=== PATIENT | female | born 1980 | race Caucasian/White ===

== ENCOUNTER 2016-02-29 12:40 | Outpatient (CLI) | payer BC ==
[~2016-02-29] VITALS: Ht 177.8 cm; Wt 108.9 kg
[~2016-02-29 12:40] MED LIST: CEPH-507 PO; CRYSELLE MT; HYDR1TAB PO; ZOVIA
[2016-02-29 12:52] VITALS: BP 125/82
[2016-02-29 13:25] VITALS: BP 113/71
[2016-02-29 13:55] VITALS: BP 113/74
[2016-02-29] MEDS ORDERED: PREN1TAB86 PO (14:11)
[2016-02-29 14:35] VITALS: BP 113/74
--- NOTE | 2016-03-02 08:35 | Physician Query-Final Dx ---
AUSTIN LEBLANC 03/02/16 0835: Clinic Account Progress/Dx Physician Query: Please give diagnosis Date of Service Feb 29, 2016 at 12:40 GILLIAN BROWN DO 03/03/16 1609: Clinic Account Progress/Dx DIAGNOSIS: Diagnosis Fall in , third trimester AUSTIN LEBLANC Mar 02, 2016 08:35 GILLIAN BROWN DO Mar 03, 2016 16:09
[2016-03-06] MEDS ORDERED: IBUP-1773 PO (07:18)
[2016-03-06] MEDS ORDERED: SIME80TA16 PO (07:18)
[2016-03-06] MEDS ORDERED: FERR-74 PO (07:18)
[2016-03-06] MEDS ORDERED: DOCU100C37 PO (07:18)
[2016-03-06] MEDS ORDERED: HYDR-3812 PO (07:18)
== END 2016-02-29 14:35 | disposition home or self-care (01) ==
LOC: WSo 12:40 → LDRP 12:40 → WSo 14:35
PROVIDERS: ATTEND Obstetrics & Gynecology
DX: O9A.213 Injury, poisoning and certain other consequences of external causes complicating pregnancy, third trimester (principal); W19.XXXA Unspecified fall, initial encounter; Y99.8 Other external cause status; Z3A.38 38 weeks gestation of pregnancy
CPT/HCPCS: 99214

== ENCOUNTER 2016-03-04 07:00 | Inpatient (IN) | payer BC ==
[~2016-03-04] VITALS: Ht 175.3 cm; Wt 109.8 kg
[2016-03-04] VITALS (15 sets, daily range): BP systolic 94–191; BP diastolic 51–132
[~2016-03-04 07:00] MED LIST changes: +PREN1TAB86 PO
[2016-03-04] MEDS ORDERED: D5 LR IV SOLUTION 1,000 ML IV SCH (07:20)
[2016-03-04] MEDS ORDERED: AMPICILLIN INJECTION 2,000 MG in NORMAL SALINE (BAXTER MINI) 50 ML IV SCH (07:20)
[2016-03-04] MEDS ORDERED: MINERAL OIL CONCENTRATE 99.9% 15 ML UDC TOP PRN (07:30)
[2016-03-04] MEDS ORDERED: LIDOCAINE/EPI 1%-1:200,000 (XYLOCAINE) 30 ML VIAL INJ PRN (07:30)
[2016-03-04] MEDS ORDERED: OXYTOCIN/NORMAL SALINE 500 ML IV SCH ×2 (08:38→13:48)
[2016-03-04 08:56] LABS: BASOPHILS % (AUTO) 0 % (0-10); EOSINOPHILS % (AUTO) 1 % (0-10); LYMPHOCYTES # (AUTO) 0.9 X 10^3 (1.0-4.0); LYMPHOCYTES % (AUTO) 18 % (12-44); MEAN CORPUSCULAR HEMOGLOBIN 32 PG (25-34); MEAN CORPUSCULAR HGB CONC 35 G/DL (32-36); MEAN CORPUSCULAR VOLUME 93 FL (80-99); MEAN PLATELET VOLUME 10.5 FL (7.4-10.4); MONOCYTES # (AUTO) 0.5 X 10^3 (0.0-1.0); MONOCYTES % (AUTO) 10 % (0-12); NEUTROPHILS # (AUTO) 3.6 X 10^3 (1.8-7.8); NEUTROPHILS % (AUTO) 72 % (42-75); PLATELET COUNT 157 10^3/uL (130-400); RED BLOOD COUNT 3.46 10^6/uL (4.35-5.85); RED CELL DISTRIBUTION WIDTH 13.4 % (10.0-14.5)
[2016-03-04 09:03] LABS: BILIRUBIN,URINE NEGATIVE (NEGATIVE); KETONES,URINE NEGATIVE (NEGATIVE); LEUKOCYTE ESTERASE ,URINE 2+ (NEGATIVE); NITRITE,URINE NEGATIVE (NEGATIVE); PH,URINE 6.5 (5-9); PROTEIN,URINE NEGATIVE (NEGATIVE); UROBILINOGEN,URINE NORMAL (NORMAL)
[2016-03-04] MEDS ORDERED: AMPICILLIN INJECTION 1,000 MG in NORMAL SALINE (BAXTER MINI) 50 ML IV SCH (11:30)
[2016-03-04] MEDS ORDERED: TERBUTALINE INJ 1 MG/ML (BRETHINE) AMP ONE (12:37)
[2016-03-04] MEDS ORDERED: METOCLOPRAMIDE INJ 10 MG/2 ML (REGLAN) ONE (12:46)
[2016-03-04] MEDS ORDERED: SUCCINYLCHOLINE INJ 100 MG/5 ML SYR ONE (12:47)
[2016-03-04] MEDS ORDERED: proPOfol 200 MG/20 ML (DIPRIVAN) VIAL IV ONE ×2 (12:47→13:18)
[2016-03-04] MEDS ORDERED: fentaNYL INJECTION 100 MCG/2 ML AMP ONE ×2 (12:47→13:11)
[2016-03-04] MEDS ORDERED: CARBOPROST (HEMABATE) 250 MCG/ML AMP IM ONE (13:01)
[2016-03-04] MEDS ORDERED: ceFAZolin 1,000 MG (ANCEF) VIAL ONE (13:18)
[2016-03-04] MEDS ORDERED: OXYTOCIN/NORMAL SALINE 1,000 ML IV ONE (13:31)
[2016-03-04] MEDS ORDERED: morphine INJ 10 MG/ML 1ML (SYR OR VIAL) ONE (13:45)
[2016-03-04] MEDS ORDERED: ceFAZolin 1,000 MG (ANCEF) VIAL IVP SCH (13:45)
--- NOTE | 2016-03-04 13:52 | Cesarean Section Operative ---
Procedure Procedure Note Pre-operative Diagnosis: Yoselin Ashton is a 36 /Para 5 /3 , Gestational Age 39 weeks with bradycardia, vaginal bleeding, induced at 35 weeks due to gestational hypertension and advanced maternal age Post-operative Diagnosis: placental abruption Procedure: Primary emergent low transverse section Physician: GILLIAN BROWN Blower Mechanic: Delia Sagastume MD Estimated blood loss: 1400 mL Disposition: stable Findings: Viable male infant, Apgars 8/9, weight 8#10 oz, intact placenta, 3vc, normal appearing uterus, tubes, and ovaries. large partial abruption, >1000 ml in the uterus Indications:Yoselin Ashton is a 36 /Para 5 /3 ,Gestational Age 39 weeks with bradycardia, vaginal bleeding. Induced at 35 weeks due to gestational hypertension and advanced maternal age. Procedure Details: The patient was seen in pre-op and the procedure was discussed with the patient in full, including the risks, benefits, and alternatives. All questions were answered. The patient was taken to the operating room and a time out was performed, verifying patient and procedure. Please see preoperative note. General anesthesia was found to be adequate and the patient was placed in the dorsal supine with leftward tilt for uterine displacement.~ Her abdomen was then subsequently and draped in the typical sterile fashion. A Pfannenstiel skin incision was made using a scalpel and carried down through the underlying fascia. The fascia was incised in the midline and tented up using Nyla clamps. The peritoneum was identified and entered bluntly in the midline. This was then stretched laterally using manual strength. A\ large Aman retractor was placed and the lower uterine segment was visualized. A scalpel was utilized to make a low transverse uterine incision. Amniotomy was performed with an Allis clamp with return of bloody fluid. The 's head was grasped and brought to the level of the incision. Fundal pressure was applied and infant was delivered without difficulty. Mouth and nares were suctioned with bulb suction. After the umbilical cord was clamped and cut, the was handed off to the pediatric staff. A sample of cord blood was then obtained. Cord gases were sent. The placenta was delivered at the same time as the baby and there was evidence of a very large abruption. The uterus was cleared of all clots and debris. The uterine incision was closed using 0 Vicryl in a running locked fashion. A second imbricated layer was placed using 0 Vicryl in a running fashion as well. The gutters were cleared of all clots and debris. Again the hysterotomy site was examined and hemostasis was observed. The bilateral tubes and ovaries appeared normal. A final check of the uterine incision showed it to be hemostatic. The peritoneum was closed using 3-0 Vicryl in a running fashion. The fascia was closed with 0 Vicryl in a running fashion. The subcutaneous space was hemostatic, and irrigated. The subcutaneous space was closed with 3-0 Vicryl in several single interrupted stitches. The skin was then closed using 4- 0 Monocryl in a running subcuticular fashion. The skin edges were reapproximated together and were hemostatic. A pressure dressing was applied. All sponge, lap and needle counts were correct at the end of the procedure per nursing. 1257 to room 1301 incision 1303 delivery Vitals - Labs Vital Signs - I&O Vital Signs Date Time Temp Pulse Resp B/P Pulse Ox O2 Delivery O2 Flow Rate FiO2 03/04/16 11:15 86 18 114/65 Room Air 03/04/16 11:00 86 18 114/65 Room Air 03/04/16 10:45 90 18 114/65 Room Air 03/04/16 10:05 85 18 131/79 03/04/16 07:45 97.1 95 18 138/89 Room Air Labs Laboratory Tests 03/04/16 08:30: Urine Bacteria MODERATEH, Urine Bilirubin NEGATIVE, Urine Casts NONE, Urine Clarity SLIGHTLY CLOUDY, Urine Color YELLOW, Urine Crystals NONE, Urine Culture Indicated NO, Urine Glucose (UA) NEGATIVE, Urine Ketones NEGATIVE, Urine Leukocyte Esterase 2+H, Urine Mucus NEGATIVE, Urine Nitrite NEGATIVE, Urine Protein NEGATIVE, Urine RBC NONE, Urine RBC (Auto) NEGATIVE, Urine Specific [place] 1.015L, Urine Squamous Epithelial Cells 10-25H, Urine Urobilinogen NORMAL, Urine WBC 2-5, Urine pH 6.5 03/04/16 08:31: Basophils # (Auto) 0.0, Basophils (%) (Auto) 0, Eosinophils # (Auto) 0.0, Eosinophils (%) (Auto) 1, Hematocrit 32L, Hemoglobin 11.2L, Lymphocytes # (Auto ) 0.9L, Lymphocytes (%) (Auto) 18, Mean Corpuscular Hemoglobin 32, Mean Corpuscular Hemoglobin Concent 35, Mean Corpuscular Volume 93, Mean Platelet Volume 10.5H, Monocytes # (Auto) 0.5, Monocytes (%) (Auto) 10, Neutrophils # ( Auto) 3.6, Neutrophils (%) (Auto) 72, Platelet Count 157, Red Blood Count 3.46L , Red Cell Distribution Width 13.4, White Blood Count 5.0 GILLIAN BROWN DO Mar 04, 2016 13:52
[2016-03-04] MEDS ORDERED: HYDROmorphone (DILAUDID) 2 MG/ML VIAL ONE (13:55)
[2016-03-04] MEDS ORDERED: ONDANSETRON 4 MG/2 ML (SDV) Z0FRAN ONE (13:55)
--- NOTE | 2016-03-04 13:56 | Progress Note-Standard ---
Standard Progress Note Progress Notes/Assess & Plan Progress/Assessment & Plan late entry AROM of clear, copious fluid at 1230 am... FSE placed. 6/50/-1-2 a few minutes later, had a deceleration that resolved. Position change, Pitocin off. About 20 minutes later, had bradycardia to 40-50 for several minutes. I was en route back to labor and delivery. RN also noted bloody show, moderate amount, She had not had any bleeding previous. RN checked and no prolapse, no subtle prolapse. Dr. Sagastume arrived on the floor and determined abruption. Patient stated, I just feel different. No tetanic contractions noted. Patient was taken to the OR for stat section with general anesthesia. hearttones were 100s prior to moving her to the back. She was consented fro stat section. Risks of bleeding, infection, injury to bowel, bladder and ureter explained to patient and . GILLIAN BROWN DO Mar 04, 2016 13:56
[2016-03-04] MEDS ORDERED: LACTATED RINGERS 1,000 ML IV ONE (13:57)
[2016-03-04] MEDS ORDERED: MEASLES,MUMPS,RUBELLA 1 EA INJ SC SCH (14:00)
[2016-03-04] MEDS ORDERED: TETANUS,DIPTH,PERTUSS P/F (BOOSTRIX) 0.5 ML VIAL IM SCH (14:00)
[2016-03-04] MEDS ORDERED: CATHETER FLUSH 10 ML SYR IV SCH ×2 (14:00)
[2016-03-04] MEDS ORDERED: ONDANSETRON 4 MG/2 ML (SDV) Z0FRAN IVP PRN ×2 (14:00→14:15)
[2016-03-04] MEDS ORDERED: ceFAZolin INJECTION 1,000 MG in NORMAL SALINE (BAXTER MINI) 50 ML IV SCH (14:00)
[2016-03-04] MEDS: HYDROmorphone (DILAUDID) 2 MG/ML VIAL IVP PRN ×7 (14:03→21:02)
[2016-03-04] MEDS ORDERED: KETOROLAC 30 MG/ML VIAL ONE (14:08)
[2016-03-04] MEDS ORDERED: MEPERIDINE (DEMEROL) INJ 50 MG/ML IVP PRN (14:15)
[2016-03-04] MEDS: KETOROLAC 30 MG/ML VIAL IVP SCH ×2 (14:17→19:45)
[2016-03-04 14:21] LABS: BASOPHILS % (AUTO) 0 % (0-10); EOSINOPHILS % (AUTO) 0 % (0-10); LYMPHOCYTES # (AUTO) 0.8 X 10^3 (1.0-4.0); LYMPHOCYTES % (AUTO) 12 % (12-44); MEAN CORPUSCULAR HEMOGLOBIN 33 PG (25-34); MEAN CORPUSCULAR HGB CONC 35 G/DL (32-36); MEAN CORPUSCULAR VOLUME 94 FL (80-99); MEAN PLATELET VOLUME 9.8 FL (7.4-10.4); MONOCYTES # (AUTO) 0.3 X 10^3 (0.0-1.0); MONOCYTES % (AUTO) 4 % (0-12); NEUTROPHILS # (AUTO) 5.9 X 10^3 (1.8-7.8); NEUTROPHILS % (AUTO) 84 % (42-75); PLATELET COUNT 150 10^3/uL (130-400); RED BLOOD COUNT 3.41 10^6/uL (4.35-5.85); RED CELL DISTRIBUTION WIDTH 13.6 % (10.0-14.5)
[2016-03-04 14:32] LABS: INR 1.1 (0.8-1.4); PROTHROMBIN TIME PATIENT 13.9 SEC (12.2-14.7)
[2016-03-04] MEDS ORDERED: TERBUTALINE INJ 1 MG/ML (BRETHINE) AMP SC ONE (15:15)
[2016-03-04 18:27] LABS: INR 1.1 (0.8-1.4); PROTHROMBIN TIME PATIENT 14.3 SEC (12.2-14.7)
[2016-03-04] MEDS: HYDROcodone/APAP 5 MG/325 MG (LORTAB) TAB PO PRN ×2 (19:45→23:55)
[2016-03-04] MEDS: ceFAZolin INJECTION 1,000 MG in NORMAL SALINE (BAXTER MINI) 50 ML IV SCH (20:02)
[2016-03-04] MEDS: DOCUSATE SODIUM 100 MG (COLACE) CAP PO SCH (23:55)
[2016-03-05] MEDS: KETOROLAC 30 MG/ML VIAL IVP SCH ×2 (02:43→08:54)
[2016-03-05 04:55] VITALS: BP 113/63
[2016-03-05] MEDS: HYDROcodone/APAP 5 MG/325 MG (LORTAB) TAB PO PRN ×3 (04:55→23:55)
[2016-03-05] MEDS: ceFAZolin INJECTION 1,000 MG in NORMAL SALINE (BAXTER MINI) 50 ML IV SCH (05:14)
[2016-03-05] MEDS: LACTATED RINGERS 1,000 ML IV SCH ×3 (06:01→15:59)
[2016-03-05 06:30] LABS: BASOPHILS % (AUTO) 0 % (0-10); EOSINOPHILS % (AUTO) 0 % (0-10); LYMPHOCYTES # (AUTO) 0.7 X 10^3 (1.0-4.0); LYMPHOCYTES % (AUTO) 11 % (12-44); MEAN CORPUSCULAR HEMOGLOBIN 32 PG (25-34); MEAN CORPUSCULAR HGB CONC 33 G/DL (32-36); MEAN CORPUSCULAR VOLUME 96 FL (80-99); MONOCYTES # (AUTO) 0.4 X 10^3 (0.0-1.0); MONOCYTES % (AUTO) 7 % (0-12); NEUTROPHILS # (AUTO) 4.8 X 10^3 (1.8-7.8); NEUTROPHILS % (AUTO) 82 % (42-75); PLATELET COUNT 132 10^3/uL (130-400); RED BLOOD COUNT 2.32 10^6/uL (4.35-5.85); RED CELL DISTRIBUTION WIDTH 13.6 % (10.0-14.5); WHITE BLOOD COUNT 5.9 10^3/uL (4.3-11.0)
--- NOTE | 2016-03-05 08:13 | Postpartum Progress Note ---
Post Op Post-operative Day #1 PLTCS - abruption Subjective: Patient is without complaints. Ambulating, voiding after lopez removed. Tolerating a regular diet without nausea or vomiting. Normal lochia. Pain is well controlled with oral pain medications. not flatus. breast feeding. Objective: Vital Sign - Last 24 Hours 03/04/16 03/04/16 03/04/16 03/04/16 10:05 10:45 11:00 11:15 Pulse 85 90 86 86 Resp 18 B/P 131/79 114/65 114/65 114/65 O2 Delivery Room Air Room Air Room Air 03/04/16 03/04/16 03/04/16 03/04/16 11:30 11:40 12:15 12:30 Temp 97.2 Pulse 80 82 82 73 Resp B/P 110/58 101/57 134/79 94/51 O2 Delivery Room Air Room Air Room Air Room Air 03/04/16 03/04/16 03/04/16 03/04/16 12:35 12:40 12:52 15:10 Temp 97.3 Pulse 97 91 Resp 16 B/P 191/132 98/53 104/69 Pulse Ox 100 O2 Delivery Non Rebreather Room Air Room Air Room Air O2 Flow Rate 10.00 03/04/16 03/04/16 03/04/16 03/04/16 15:20 16:40 20:00 23:55 Temp 97.8 97.6 99.1 Pulse 89 93 81 Resp 16 16 16 B/P 104/65 115/76 106/71 Pulse Ox 98 100 97 O2 Delivery Room Air Room Air Room Air Room Air 03/05/16 04:55 Temp 98.1 Pulse 86 Resp 16 B/P 113/63 Pulse Ox 99 O2 Delivery Room Air Intake and Output 03/04/16 03/04/16 03/05/16 15:00 23:00 07:00 Intake Total 175 ml 1000 ml Output Total 40 ml 220 ml 850 ml Balance -40 ml -45 ml 150 ml Laboratory Tests Test 03/04/16 08:30 03/04/16 08:31 03/04/16 14:12 03/04/16 18:24 Range/Units Urine Bacteria MODERATE H /HPF Urine Bilirubin NEGATIVE NEGATIVE Urine Casts NONE /LPF Urine Clarity SLIGHTLY CLOUDY Urine Color YELLOW Urine Crystals NONE /LPF Urine Culture Indicated NO Urine Glucose (UA) NEGATIVE NEGATIVE Urine Ketones NEGATIVE NEGATIVE Urine Leukocyte Esterase 2+ H NEGATIVE Urine Mucus NEGATIVE /LPF Urine Nitrite NEGATIVE NEGATIVE Urine Protein NEGATIVE NEGATIVE Urine RBC NONE /HPF Urine RBC (Auto) NEGATIVE NEGATIVE Urine Specific [place] 1.015 L 1.016-1.022 Urine Squamous Epithelial Cells 10-25 H /HPF Urine Urobilinogen NORMAL NORMAL MG/DL Urine WBC 2-5 /HPF Urine pH 6.5 5-9 Basophils # (Auto) 0.0 0.0 0.0-0.1 10^3/uL Basophils (%) (Auto) 0 0 0-10 % Eosinophils # (Auto) 0.0 0.0 0.0-0.3 10^3/uL Eosinophils (%) (Auto) 1 0 0-10 % Hematocrit 32 L 32 L 35-52 % Hemoglobin 11.2 L 11.1 L 11.5-16.0 G/DL Lymphocytes # (Auto) 0.9 L 0.8 L 1.0-4.0 X 10^3 Lymphocytes (%) (Auto) 18 12 12-44 % Mean Corpuscular Hemoglobin 32 33 25-34 PG Mean Corpuscular Hemoglobin Concent 35 35 32-36 G/DL Mean Corpuscular Volume 93 94 80-99 FL Mean Platelet Volume 10.5 H 9.8 7.4-10.4 FL Monocytes # (Auto) 0.5 0.3 0.0-1.0 X 10^3 Monocytes (%) (Auto) 10 4 0-12 % Neutrophils # (Auto) 3.6 5.9 1.8-7.8 X 10^3 Neutrophils (%) (Auto) 72 84 H 42-75 % Platelet Count 157 150 130-400 10^3/uL Red Blood Count 3.46 L 3.41 L 4.35-5.85 10^6/uL Red Cell Distribution Width 13.4 13.6 10.0-14.5 % White Blood Count 5.0 7.0 4.3-11.0 10^3/uL Activated Partial Thromboplast Time 23 L 24 24-35 SEC D-Dimer 7.85 H 5.50 H 0.00-0.49 UG/ML Fibrinogen 382 327 221-496 MG/DL INR Comment 1.1 1.1 0.8-1.4 Prothrombin Time 13.9 14.3 12.2-14.7 SEC Test 03/05/16 06:11 Range/Units Basophils # (Auto) 0.0 0.0-0.1 10^3/uL Basophils (%) (Auto) 0 0-10 % Eosinophils # (Auto) 0.0 0.0-0.3 10^3/uL Eosinophils (%) (Auto) 0 0-10 % Hematocrit 22 L 35-52 % Hemoglobin 7.4 #L 11.5-16.0 G/DL Lymphocytes # (Auto) 0.7 L 1.0-4.0 X 10^3 Lymphocytes (%) (Auto) 11 L 12-44 % Mean Corpuscular Hemoglobin 32 25-34 PG Mean Corpuscular Hemoglobin Concent 33 32-36 G/DL Mean Corpuscular Volume 96 80-99 FL Mean Platelet Volume 10.0 7.4-10.4 FL Monocytes # (Auto) 0.4 0.0-1.0 X 10^3 Monocytes (%) (Auto) 7 0-12 % Neutrophils # (Auto) 4.8 1.8-7.8 X 10^3 Neutrophils (%) (Auto) 82 H 42-75 % Platelet Count 132 130-400 10^3/uL Red Blood Count 2.32 L 4.35-5.85 10^6/uL Red Cell Distribution Width 13.6 10.0-14.5 % White Blood Count 5.9 4.3-11.0 10^3/uL Physical Exam: General - Alert and oriented, no apparent distress Abdomen - Soft, appropriately tender to palpation, non-distended, fundus firm at umbilicus Incision - clean, dry and intact; no erythema or induration, no drainage Extremities - no edema, negative Olivia's bilaterally Assessment: 1. post-operative day # 1, status post PLTCS, abruption Recovering well, hemodynamically stable 2. Acute blood loss anemia - stable Plan: Routine post-operative care. Encourage breast feeding. Encourage ambulation. VTE prophylaxis: SCDs. Ferrous sulfate supplementation. Vitals - Labs Vital Signs - I&O Vital Signs Date Time Temp Pulse Resp B/P Pulse Ox O2 Delivery O2 Flow Rate FiO2 03/05/16 04:55 98.1 86 16 113/63 99 Room Air 03/04/16 23:55 99.1 81 16 106/71 97 Room Air 03/04/16 20:00 97.6 93 16 115/76 100 Room Air 03/04/16 16:40 Room Air 03/04/16 15:20 97.8 89 16 104/65 98 Room Air 03/04/16 15:10 97.3 91 16 104/69 100 Room Air 03/04/16 12:52 97 18 98/53 Room Air 03/04/16 12:40 18 191/132 Room Air 03/04/16 12:35 Non Rebreather 10.00 03/04/16 12:30 73 18 94/51 Room Air 03/04/16 12:15 82 18 134/79 Room Air 03/04/16 11:40 82 18 101/57 Room Air 03/04/16 11:30 97.2 80 18 110/58 Room Air 03/04/16 11:15 86 18 114/65 Room Air 03/04/16 11:00 86 18 114/65 Room Air 03/04/16 10:45 90 18 114/65 Room Air 03/04/16 10:05 85 18 131/79 I & O 03/05/16 07:00 Intake Total 1175 ml Output Total 1110 ml Balance 65 ml Labs Laboratory Tests 03/04/16 08:30: Urine Bacteria MODERATEH, Urine Bilirubin NEGATIVE, Urine Casts NONE, Urine Clarity SLIGHTLY CLOUDY, Urine Color YELLOW, Urine Crystals NONE, Urine Culture Indicated NO, Urine Glucose (UA) NEGATIVE, Urine Ketones NEGATIVE, Urine Leukocyte Esterase 2+H, Urine Mucus NEGATIVE, Urine Nitrite NEGATIVE, Urine Protein NEGATIVE, Urine RBC NONE, Urine RBC (Auto) NEGATIVE, Urine Specific [place] 1.015L, Urine Squamous Epithelial Cells 10-25H, Urine Urobilinogen NORMAL, Urine WBC 2-5, Urine pH 6.5 03/04/16 08:31: Basophils # (Auto) 0.0, Basophils (%) (Auto) 0, Eosinophils # (Auto) 0.0, Eosinophils (%) (Auto) 1, Hematocrit 32L, Hemoglobin 11.2L, Lymphocytes # (Auto ) 0.9L, Lymphocytes (%) (Auto) 18, Mean Corpuscular Hemoglobin 32, Mean Corpuscular Hemoglobin Concent 35, Mean Corpuscular Volume 93, Mean Platelet Volume 10.5H, Monocytes # (Auto) 0.5, Monocytes (%) (Auto) 10, Neutrophils # ( Auto) 3.6, Neutrophils (%) (Auto) 72, Platelet Count 157, Red Blood Count 3.46L , Red Cell Distribution Width 13.4, White Blood Count 5.0 03/04/16 14:12: Basophils # (Auto) 0.0, Basophils (%) (Auto) 0, Eosinophils # (Auto) 0.0, Eosinophils (%) (Auto) 0, Hematocrit 32L, Hemoglobin 11.1L, Lymphocytes # (Auto ) 0.8L, Lymphocytes (%) (Auto) 12, Mean Corpuscular Hemoglobin 33, Mean Corpuscular Hemoglobin Concent 35, Mean Corpuscular Volume 94, Mean Platelet Volume 9.8, Monocytes # (Auto) 0.3, Monocytes (%) (Auto) 4, Neutrophils # (Auto ) 5.9, Neutrophils (%) (Auto) 84H, Platelet Count 150, Red Blood Count 3.41L, Red Cell Distribution Width 13.6, White Blood Count 7.0, Activated Partial Thromboplast Time 23L, D-Dimer 7.85H, Fibrinogen 382, INR Comment 1.1, Prothrombin Time 13.9 03/04/16 18:24: Activated Partial Thromboplast Time 24, D-Dimer 5.50H, Fibrinogen 327, INR Comment 1.1, Prothrombin Time 14.3 03/05/16 06:11: Basophils # (Auto) 0.0, Basophils (%) (Auto) 0, Eosinophils # (Auto) 0.0, Eosinophils (%) (Auto) 0, Hematocrit 22L, Hemoglobin 7.4#L, Lymphocytes # (Auto ) 0.7L, Lymphocytes (%) (Auto) 11L, Mean Corpuscular Hemoglobin 32, Mean Corpuscular Hemoglobin Concent 33, Mean Corpuscular Volume 96, Mean Platelet Volume 10.0, Monocytes # (Auto) 0.4, Monocytes (%) (Auto) 7, Neutrophils # (Auto ) 4.8, Neutrophils (%) (Auto) 82H, Platelet Count 132, Red Blood Count 2.32L, Red Cell Distribution Width 13.6, White Blood Count 5.9 GILLIAN BROWN DO Mar 05, 2016 08:13
[2016-03-05] MEDS: DOCUSATE SODIUM 100 MG (COLACE) CAP PO SCH ×2 (08:55→20:30)
[2016-03-05] MEDS: FERROUS SULF 325 MG (IRON) TAB PO SCH ×2 (08:57→20:30)
[2016-03-05] MEDS: MILK OF MAGNESIA 400 MG/5 ML 30 ML UDC PO SCH ×3 (08:57→20:30)
[2016-03-05 08:59] VITALS: BP 111/66
[2016-03-05 14:13] VITALS: BP 108/70
[2016-03-05] MEDS: IBUPROFEN 600 MG (MOTRIN) TAB PO SCH ×2 (14:14→20:30)
--- NOTE | 2016-03-05 14:24 | Anesthesia-General Post-Op ---
General Patient Condition Mental Status/LOC: Same as Preop Cardiovascular: Satisfactory Nausea/Vomiting: Absent Respiratory: Satisfactory Pain: Controlled Complications: Absent Post Op Complications Complications None Follow Up Care/Instructions Patient Instructions None needed. Anesthesia/Patient Condition Patient Condition Patient is doing well, no complaints, stable vital signs, no apparent adverse anesthesia problems. No complications reported per nursing. JAY ORTIZ CRNA Mar 05, 2016 14:24
[2016-03-05] MEDS ORDERED: SIMETHICONE 80 MG (MYLICON) CHEW ONE (18:32)
[2016-03-05] MEDS ORDERED: SIMETHICONE 80 MG (MYLICON) CHEW PO PRN ×2 (18:45)
[2016-03-05 20:00] VITALS: BP 110/68
[2016-03-06 01:55] VITALS: BP 102/67
[2016-03-06] MEDS: IBUPROFEN 600 MG (MOTRIN) TAB PO SCH ×4 (01:55→20:33)
--- NOTE | 2016-03-06 07:17 | Postpartum Progress Note ---
Post Op Post-operative Day #2 s/p PLTCS abruption Subjective: Patient is without complaints. Ambulating, voiding after lopez removed. Tolerating a regular diet without nausea or vomiting. Normal lochia. Pain is well controlled with oral pain medications. Passing flatus. breast feeding. Objective: Vital Sign - Last 12Hours 03/05/16 03/06/16 20:00 01:55 Temp 98.0 98.1 Pulse 94 82 Resp 18 18 B/P 110/68 102/67 Pulse Ox 97 98 O2 Delivery Room Air Room Air Intake and Output 03/06/16 00:00 Intake Total 500 ml Output Total 1500 ml Balance -1000 ml Physical Exam: General - Alert and oriented, no apparent distress Abdomen - Soft, appropriately tender to palpation, non-distended, fundus firm at umbilicus Incision - clean, dry and intact; no erythema or induration, no drainage Extremities - no edema, negative Olivia's bilaterally Assessment: 1. post-operative day # 2, status post PLTCS. Recovering well, hemodynamically stable 2. Acute blood loss anemia - stable no replacement. Iron only Plan: Routine post-operative care. Encourage breast feeding. Encourage ambulation. VTE prophylaxis: SCDs. Ferrous sulfate supplementation. Plan for discharge Vitals - Labs Vital Signs - I&O Vital Signs Date Time Temp Pulse Resp B/P Pulse Ox O2 Delivery O2 Flow Rate FiO2 03/06/16 01:55 98.1 82 18 102/67 98 Room Air 03/05/16 20:00 98.0 94 18 110/68 97 Room Air 03/05/16 14:13 98.4 94 18 108/70 99 Room Air 03/05/16 08:59 97.3 85 16 111/66 100 Room Air I & O 03/06/16 07:00 Intake Total 1400 ml Output Total 1500 ml Balance -100 ml Labs Microbiology 03/04/16 Urine Culture - Preliminary, Resulted Strep Agalactiae Group B Corynebacterium Species GILLIAN BROWN DO Mar 06, 2016 07:17
[2016-03-06] MEDS ORDERED: DOCU100C37 PO (07:18)
[2016-03-06] MEDS ORDERED: IBUP-1773 PO (07:18)
[2016-03-06] MEDS ORDERED: HYDR-3812 PO (07:18)
[2016-03-06] MEDS ORDERED: FERR-74 PO (07:18)
[2016-03-06] MEDS ORDERED: SIME80TA16 PO (07:18)
--- NOTE | 2016-03-06 07:21 | Discharge Inst-Women's Service ---
Discharge Inst-Women's Serv Depart Medication/Instructions New, Converted or Re-Newed RX: Other (lortab on chart. Call in other RX) Instructions no lifting over 25 lbs, nothing in vagina for 6 weeks. No driving for one week Final Diagnosis placental abruption gestational hypertension induction primary section acute blood loss anemia Consults/Follow Up Additional Follow Up: Yes (1 weeks with cabrera. CBC and BP check. 6 weeks with Cabrera) Activity Activity: Activity as Tolerated Driving Instructions: No Driving for 1 Week NO SMOKING: NO SMOKING Nothing Inside Vagina: No Douching, No [place], No Tampons Diet Discharge Diet: No Restrictions Symptoms to Report to : Bleeding Excessive, Pain Increased, Fever Over 101 Degrees F, Vaginal Bleeding Increase, Vaginal Discharge Foul For Any Problems or Questions: Contact Your Physician Skin/Wound Care Infection Signs and Symptoms: Increased Redness, Foul Odor of Wound, Increased Drainage, Skin Itchy or Has a Rash, Increased Swelling, Temperature Above 101 F Operative Area Clean and Dry: Keep Incision Clean/Dry Stitches/Belkis/Dermabond: Dermabond Bathing Instructions: GILLIAN Conde DO Mar 06, 2016 07:21
[2016-03-06 08:00] VITALS: BP 113/69
[2016-03-06] MEDS: FERROUS SULF 325 MG (IRON) TAB PO SCH ×2 (08:06→18:55)
[2016-03-06] MEDS: DOCUSATE SODIUM 100 MG (COLACE) CAP PO SCH ×2 (08:07→20:34)
[2016-03-06] MEDS: MILK OF MAGNESIA 400 MG/5 ML 30 ML UDC PO SCH ×2 (08:20→14:30)
[2016-03-06 10:25] VITALS: BP 103/67
[2016-03-06 14:30] VITALS: BP 117/68
[2016-03-06] MEDS ORDERED: BISACODYL 10 MG SUPP (DULCOLAX) PR ONE (15:45)
[2016-03-06] MEDS ORDERED: BISACODYL 10 MG SUPP (DULCOLAX) PR NR (18:50)
[2016-03-06 20:34] VITALS: BP 114/71
[2016-03-06] MEDS: HYDROcodone/APAP 5 MG/325 MG (LORTAB) TAB PO PRN (20:34)
[2016-03-07 02:42] VITALS: BP 104/68
[2016-03-07] MEDS: IBUPROFEN 600 MG (MOTRIN) TAB PO SCH ×2 (02:42→10:00)
[2016-03-07] MEDS: HYDROcodone/APAP 5 MG/325 MG (LORTAB) TAB PO PRN (06:25)
[2016-03-07 10:00] VITALS: BP 125/73
[2016-03-07] MEDS: DOCUSATE SODIUM 100 MG (COLACE) CAP PO SCH (10:00)
[2016-03-07] MEDS: FERROUS SULF 325 MG (IRON) TAB PO SCH (10:00)
--- NOTE | 2016-03-07 11:45 | Progress Note-Standard ---
Standard Progress Note Progress Notes/Assess & Plan Progress/Assessment & Plan Finally had BM last night after suppository. Feels well. Has not continued breast feeding. She has no current complaints. Vital Sign - Last 12Hours 03/07/16 03/07/16 02:42 10:00 Temp 97.0 97.2 Pulse 80 85 Resp 18 18 B/P 104/68 125/73 Pulse Ox 98 99 O2 Delivery Room Air Room Air Intake and Output 03/07/16 00:00 Intake Total 1800 ml Output Total 500 ml Balance 1300 ml Inc C/D/I Assessment: 1. POD #3 s/p PLTCS due to abruption 2. acute blood loss anemia - vitals stable, on iron supplementation Plan: discharge home today. GILLIAN BROWN DO Mar 07, 2016 11:45
--- NOTE | 2016-03-25 16:17 | Discharge Summary ---
Diagnosis/Chief Complaint Date of Admission Mar 04, 2016 at 07:02 Date of Discharge Mar 07, 2016 at 14:40 Discharge Date: Mar 07, 2016 Admission Diagnosis Admission Diagnosis gestational hypertension Discharge Diagnosis placental abruption gestational hypertension primary section acute blood loss anemia Reason Hospital Visit Patient was admitted for induction due to increasing blood pressures. Discharge Summary Hospital Course Hospital Course She was induced but after AROM had sudden bleeding and decompensation of the status. A section was performed emergently and there was evidence of large abruption. Prior to the delivery, status had been very reassuring. The patient had had a fall on the ice a few days prior to delivery. Though her workup at that time was normal, she likely had an occult abruption that bled once the water had broken. Her post operative course is remarkable for pain managment with toradol and then motrin and lortab. Due to the abruption, DIC lab work was done and was wnl , but her pod #1 hemoglobin was 7.4. She did not receive blood products but did receive iron supplementation. She was discharged to home on POD #2 in stable condition. Procedures None. Discharge Physical Examination Allergies: Coded Allergies: No Known Drug Allergies (Verified , 12/09/07) General Appearance: Alert Respiratory: Clear to Auscultation Cardiovascular: Regular Rate, Normal S1, Normal S2 Abdominal: No Masses Extremities: Other (2+ edema) Skin: Other (Inc C/D/I) Discussion & Recommendations will follow up in 1 week for incision check Discharge Home Medications Reviewed and agree with Discharge Medication list on patient's Discharge Instruction sheet Condition at Discharge stable Instructions to Patient/Family Please see electronic discharge instructions given to patient. Clinical Quality Measures DVT/VTE Risk/Contraindication: Risk Factor Score Per Nursin RFS Level Per Nursing on Admit: 1=Low/No VTE PPX GILLIAN BROWN DO Mar 25, 2016 16:17
== END 2016-03-07 14:40 | disposition home or self-care (01) | DRG 765 ==
LOC: LDRP 07:02
PROVIDERS: ADMIT Obstetrics & Gynecology; ATTEND Obstetrics & Gynecology
PROC: 10D00Z1 Extraction of Products of Conception, Low, Open Approach (ICD-10-PCS; principal; 2016-03-04 12:57)
DX: O45.93 Premature separation of placenta, unspecified, third trimester (principal); O13.4 Gestational [pregnancy-induced] hypertension without significant proteinuria, complicating childbirth; O36.63X0 Maternal care for excessive fetal growth, third trimester, not applicable or unspecified; O99.824 Streptococcus B carrier state complicating childbirth; O90.81 Anemia of the puerperium; D62 Acute posthemorrhagic anemia; Z37.0 Single live birth; Z3A.39 39 weeks gestation of pregnancy
CPT/HCPCS: 36415; 81000; 85025; 85379; 85384; 85610; 85730; 86850; 86900; 86901; 87088; 94664

== ENCOUNTER → 2017-08-26 | Outpatient (CLI) | payer BC, OTHER ==
[~2017-08-26] MED LIST changes: +ACHD5005 PO; +DOCU100C37 PO; +FERR325T18 PO; +IBUP-1773 PO; +SIME80TA16 PO
--- NOTE | 2017-08-26 15:18 | Diagnostic Imaging Report ---
INDICATION: survey. TECHNIQUE: Multiple real-time grayscale images were obtained over the gravid uterus. COMPARISON: None FINDINGS: There are no prior studies available for comparison. There is a single live fetus in transverse presentation. heart motion was noted and a rate of 140 bpm was recorded. There were no abnormalities identified. The placenta is anterior and low-lying and there may be a marginal previa. The amniotic fluid volume is within normal limits. The growth parameters are fairly uniform. The cervix was visualized and measures 10.4 cm in length. Biometrical measurements are as follows: Biparietal 4.55 cm, age 19 weeks 6 days. Head circumference 18.03 cm, age 2 weeks 4 days. Abdominal circumference 14.74 cm, age 20 weeks 1 days. Femur length 3.40 cm, age 20 weeks 5 days. Sonographic estimate age: 20 weeks 3 days. Sonographic estimated date of delivery: 01/10/18. Estimated Weight: 346 gm (+/- 51 gm). LMP percentile: 56%. heart rate: 140 beats per minute. number: 1 of 1. IMPRESSION: 1. There is a single live fetus of approximately 20 weeks 3 days gestation +/-1.5 weeks. The EDC is January 10, 2018. 2. There are no abnormalities identified. 3. The placenta is anterior and low-lying and there may be a marginal previa. I would recommend that a short-term (4-6 week) followup exam be performed for further evaluation. Dictated by: Dictated on workstation # [id number]
== END ==
LOC: RAD 09:34
PROVIDERS: ATTEND Obstetrics & Gynecology
DX: Z36.89 Encounter for other specified antenatal screening (principal); O44.42 Low lying placenta NOS or without hemorrhage, second trimester; Z3A.20 20 weeks gestation of pregnancy
CPT/HCPCS: 76805

== ENCOUNTER → 2017-11-03 | Outpatient (CLI) | payer BC, OTHER ==
--- NOTE | 2017-11-03 18:17 | Diagnostic Imaging Report ---
INDICATION: Low-lying placenta. TECHNIQUE: Multiple real-time grayscale images were obtained over the gravid uterus. COMPARISON: None. FINDINGS: Limited obstetrical ultrasonography reveals rivera intrauterine gestation. The placenta appears to be in normal position. Fetus is in a cephalic presentation. Amniotic fluid index is 9.1 cm. cardiac activity is present with a rate of 144 beats per minute. Limited anatomic survey of the fetus reveals no definite abnormality. Fluid is present within the bladder. No maternal adnexal region abnormality is identified. IMPRESSION: No evidence of low-lying placenta or placenta previa. Dictated by: Dictated on workstation # [id number]
== END ==
LOC: RAD 15:05
PROVIDERS: ATTEND Obstetrics & Gynecology
DX: O34.219 Maternal care for unspecified type scar from previous cesarean delivery (principal); Z3A.28 28 weeks gestation of pregnancy
CPT/HCPCS: 76816

== ENCOUNTER 2017-12-31 09:36 | Outpatient (CLI) | payer BC ==
[~2017-12-31] VITALS: Ht 175.3 cm; Wt 110.2 kg
[2017-12-31] MEDS ORDERED: PREN1TAB79 PO (09:49)
== END 2017-12-31 10:05 | disposition home or self-care (01) ==
LOC: PREOP 09:36
PROVIDERS: ATTEND Obstetrics & Gynecology
DX: Z01.818 Encounter for other preprocedural examination (principal); Z11.2 Encounter for screening for other bacterial diseases
CPT/HCPCS: 87081

== ENCOUNTER → 2018-03-25 | Outpatient (CLI) | payer BC, OTHER ==
[~2018-03-25] MED LIST changes: +IBUP-844 PO; +PREN1TAB79 PO; +PROM118S PO
--- NOTE | 2018-03-25 14:50 | Diagnostic Imaging Report ---
PROCEDURE: US Non-ob pelvis comp/trans. TECHNIQUE: Multiple realtime grayscale images were obtained of the pelvis in various projections endovaginally. Transabdominal imaging was also performed. INDICATION: Menorrhagia. FINDINGS: Uterus measures 10.8 x 6.1 x 4.8 cm. Endometrium is 9 mm in thickness. There appears to be a small cyst in the fundal myometrium. No other myometrial masses are seen. The right ovary measures 3.5 x 2.9 x 2.9 cm. There is blood flow to the right ovary. No adnexal mass or free fluid is seen. Left ovary was obscured by bowel gas. IMPRESSION: Nonvisualized left ovary. Study is otherwise unremarkable. Dictated by: Dictated on workstation # [id number]
== END ==
LOC: RAD 11:43
PROVIDERS: ATTEND Obstetrics & Gynecology
DX: N92.0 Excessive and frequent menstruation with regular cycle (principal)
CPT/HCPCS: 76830; 76856

== ENCOUNTER → 2019-02-24 | Outpatient (CLI) | payer BC ==
--- NOTE | 2019-02-24 14:19 | Diagnostic Imaging Report ---
PROCEDURE: US Non-ob pelvis comp/trans. TECHNIQUE: Multiple realtime grayscale images were obtained of the pelvis in various projections endovaginally. Transabdominal imaging was also performed. INDICATION: Pelvic pain. The uterus is retroflexed measuring 11.9 x 6.3 x 6.1 cm. Endometrium is approximately 9 mm in thickness. There is a small hypoechoic nodule measuring approximate 11 mm, perhaps small fibroid. Right ovary measures 3.1 x 2.2 x 1.8 cm and the left ovary measures 4.9 x 2.9 x 2.7 cm. There is blood flow to the ovaries. No adnexal mass or free fluid is seen. IMPRESSION: Probable small uterine fibroid. The study is otherwise unremarkable. Dictated by: Dictated on workstation # [id number]
== END ==
LOC: RAD 12:33
PROVIDERS: ATTEND Nurse Practitioner
DX: K42.9 Umbilical hernia without obstruction or gangrene (principal)
CPT/HCPCS: 76830; 76856

== ENCOUNTER → 2019-08-29 | Outpatient (CLI) | payer BC ==
--- NOTE | 2019-08-29 14:20 | Diagnostic Imaging Report ---
PROCEDURE: US Non-ob pelvis comp/trans. INDICATION: Left lower quadrant pain TECHNIQUE: Multiple real time marte scale sonographic images were obtained of the pelvis transabdominally and endovaginally. CORRELATION STUDY: None FINDINGS: UTERUS: 11.5 x 5.6 cm. The uterus is retroverted. Hypoechoic areas noted along the posterior left aspect approximately 17 x 14 x 11 mm, additional hypoechoic area near the cervix 18 x 9 x 9 mm.. ENDOMETRIUM: 7 mm. The endometrium appearing unremarkable. RIGHT OVARY: 3.9 x 2.8 x 2.5 cm The right ovary has an unremarkable appearance. No concerning mass. Blood flow is present. LEFT OVARY: 3.5 x 3.3 x 3.2 cm Hypoechoic structure adjacent left ovary measuring approximately 2.2 x 1.9 x 1.7 cm suspect for paraovarian cyst. Blood flow is present to the left ovary. No significant free pelvic fluid. IMPRESSION: 1. Regional areas of asymmetric hypoechogenicity of the uterus. While nonspecific, may reflect small fibroids. 2. Endometrial thickness within normal limits. 3. Likely a 2 cm left-sided paraovarian cyst. Dictated by: Dictated on workstation # [id number]
== END ==
LOC: RAD 12:17
PROVIDERS: ATTEND Nurse Practitioner
DX: N85.8 Other specified noninflammatory disorders of uterus (principal)
CPT/HCPCS: 76830; 76856

== ENCOUNTER → 2019-09-28 | Outpatient (CLI) | payer BC ==
[~2019-09-28] MED LIST changes: +CATHETER FLUSH 10 ML SYR IV PRN; +HOLD METFORMIN - RECEIVED CONTRAST 20 ML VIAL IV SCH; +IOHEXOL 350 MG/ML 100 ML (OMNIPAQUE 350) VIAL IV ONE; +NS 100 ML (IVPB) BAG IV ONE
--- NOTE | 2019-09-28 14:25 | Diagnostic Imaging Report ---
PROCEDURE: CT abdomen and pelvis with and without contrast. TECHNIQUE: Precontrast acquisitions were acquired through the abdomen and pelvis. Multiple contiguous axial images were obtained through the abdomen and pelvis after the administration of intravenous contrast. Auto Exposure Controls were utilized during the CT exam to meet ALARA standards for radiation dose reduction. INDICATION: Upper abdominal pain. COMPARISON: Correlation is made with prior CT 04/04/2010. FINDINGS: The lung bases are clear. No discrete liver mass is detected. Gallbladder appears contracted. No biliary ductal dilatation is identified. The pancreas and spleen are unremarkable. No adrenal mass is detected. Kidneys are unremarkable. Aorta is non-aneurysmal. There is a fat-containing umbilical hernia. The bowel loops are normal caliber. No obstruction is identified. Appendix is visualized in the right lower quadrant and appears unremarkable. No free fluid or fluid collection is identified. Bladder and uterus are unremarkable. There are low densities within both ovaries suggestive of cyst. Cyst on the right measures approximately 2.2 cm. Cyst on the left measures 2.4 cm. IMPRESSION: 1. Fat-containing umbilical hernia. No herniated bowel loops are identified. 2. Probable bilateral ovarian cysts. 3. No acute features detected. Dictated by: Dictated on workstation # [id number]
== END ==
LOC: RAD 13:31
PROVIDERS: ATTEND Surgery
DX: K42.9 Umbilical hernia without obstruction or gangrene (principal)
CPT/HCPCS: 74178

== ENCOUNTER → 2019-10-03 | Outpatient (CLI) | payer BC ==
[~2019-10-03] MED LIST changes: -CATHETER FLUSH 10 ML SYR IV PRN; -HOLD METFORMIN - RECEIVED CONTRAST 20 ML VIAL IV SCH; -IOHEXOL 350 MG/ML 100 ML (OMNIPAQUE 350) VIAL IV ONE; -NS 100 ML (IVPB) BAG IV ONE
--- NOTE | 2019-10-03 10:10 | Diagnostic Imaging Report ---
EXAMINATION: US Abdomen limited. TECHNIQUE: Multiple real-time grayscale images were obtained over the right upper quadrant in various projections. REASON FOR EXAM: Mid epigastric pain. COMPARISON: CT abdomen and pelvis on 09/28/2019. FINDINGS: The liver is normal in size and shape. The liver echogenicity is within normal limits. There are no focal lesions. No intrahepatic biliary dilatation is present. The common bile duct is not well seen due to overlying bowel gas. The main portal vein is hepatopetal. No ascites is seen in the upper abdomen. A gallstone is visualized within the neck of the gallbladder measuring 2 cm. There is gallbladder wall thickening of 0.7 cm. The gallbladder is contracted. The sonographic Coates sign is negative. The pancreas and aorta are obscured due to overlying bowel gas. The IVC is visualized and has a normal appearance. The right kidney measures approximately 10.5 cm in length and has a normal appearance. IMPRESSION: 1. Cholelithiasis in the neck of the gallbladder with contracted gallbladder and gallbladder wall thickening of 0.7 cm. These findings may represent acute cholecystitis and further evaluation with HIDA scan may be considered. Surgical consultation is also recommended. Dictated by: Dictated on workstation # [id number]
== END ==
LOC: RAD 06:43
PROVIDERS: ATTEND Surgery
DX: K80.20 Calculus of gallbladder without cholecystitis without obstruction (principal)
CPT/HCPCS: 76705

== ENCOUNTER 2019-10-09 06:19 | Outpatient (CLI) | payer BC ==
[~2019-10-09] VITALS: Ht 175 cm; Wt 95.4 kg
[2019-10-09] MEDS ORDERED: NORE1CAP PO (15:48)
== END 2019-10-09 15:58 | disposition home or self-care (01) ==
LOC: PREOP 06:19
PROVIDERS: ATTEND Surgery
DX: Z01.818 Encounter for other preprocedural examination (principal)

== ENCOUNTER 2019-10-12 11:37 | Day surgery (SDC) | payer BC ==
[~2019-10-12] VITALS: Ht 175 cm; Wt 95.4 kg
[2019-10-12] VITALS (14 sets, daily range): BP systolic 124–162; BP diastolic 72–99
[~2019-10-12 11:37] MED LIST changes: +NORE1CAP PO
[2019-10-12] MEDS ORDERED: CATHETER FLUSH 10 ML SYR IV PRN (12:00)
[2019-10-12] MEDS ORDERED: ceFAZolin 2 GM IV Premixed 50 ML IV ONE (12:00)
[2019-10-12] MEDS: LACTATED RINGERS 1,000 ML IV PRN ×3 (12:08→15:40)
[2019-10-12 12:09] LABS: BASOPHILS % (AUTO) 0 % (0-10); EOSINOPHILS % (AUTO) 1 % (0-10); HEMATOCRIT 39 % (35-52); HEMOGLOBIN 13.5 G/DL (11.5-16.0); LYMPHOCYTES % (AUTO) 31 % (12-44); MEAN CORPUSCULAR HEMOGLOBIN 31 PG (25-34); MEAN CORPUSCULAR HGB CONC 35 G/DL (32-36); MEAN CORPUSCULAR VOLUME 88 FL (80-99); MEAN PLATELET VOLUME 10.6 FL (7.4-10.4); MONOCYTES # (AUTO) 0.2 X 10^3 (0.0-1.0); MONOCYTES % (AUTO) 7 % (0-12); NEUTROPHILS % (AUTO) 60 % (42-75); PLATELET COUNT 198 10^3/uL (130-400); WHITE BLOOD COUNT 3.2 10^3/uL (4.3-11.0)
--- NOTE | 2019-10-12 12:21 | Progress Note-Pre Operative ---
Pre-Operative Progress Note H&P Reviewed The H&P was reviewed, patient examined and no changes noted. Date Seen by Provider: Oct 12, 2019 Time Seen by Provider: 12:15 Date H&P Reviewed: Oct 12, 2019 Time H&P Reviewed: 12:15 Pre-Operative Diagnosis: sx cholelithiasis and umbilical hernia SOCORRO DIAZ MD Oct 12, 2019 12:21
[2019-10-12] MEDS ORDERED: HYDR-3817 PO (12:23)
--- NOTE | 2019-10-12 12:24 | Discharge Inst-Surgical ---
D/C Lap Instructions-EMILY New, Converted, or Re-Newed RX: RX on Chart Follow Up Appt in 2 weeks Activity as tolerated No driving for 24 hours No driving while on pain medications Incentive Spirometry use every 2 hours while awake Regular Diet Symptoms to Report: Fever over 101 degree F, Nausea/Vomiting Infection Signs and Symptoms to report: Increased redness, Foul odor of wound, Increased drainage Bathing instructions: May shower Operative Area Clean/Dry; Keep incision clean/dry If any problems/questions: Contact your physician or go to Emergency Room SOCORRO DIAZ MD Oct 12, 2019 12:24
[2019-10-12] MEDS ORDERED: ACETAMINOPHEN 325 MG TABLET PO PRN (12:30)
[2019-10-12] MEDS ORDERED: ONDANSETRON 4 MG/2 ML (SDV) Z0FRAN IVP PRN ×2 (12:30→15:00)
[2019-10-12] MEDS ORDERED: morphine INJ 10 MG/ML 1ML (SYR OR VIAL) IVP PRN ×2 (12:30)
[2019-10-12] MEDS ORDERED: MIDAZOLAM 2 MG/2 ML (VERSED) VIAL ONE ×2 (12:55→13:04)
[2019-10-12] MEDS ORDERED: LIDOCAINE PF 2% 5 ML (XYLOCAINE) VIAL ONE (12:55)
[2019-10-12] MEDS ORDERED: fentaNYL INJECTION 100 MCG/2 ML AMP ONE (12:55)
[2019-10-12] MEDS ORDERED: proPOfol 200 MG/20 ML (DIPRIVAN) VIAL IV ONE (12:55)
[2019-10-12] MEDS ORDERED: ROCURONIUM 10 MG/ML 5 ML SYRINGE IV ONE (12:55)
[2019-10-12] MEDS ORDERED: SEVOFLURANE (ULTANE) 15 ML INHAL SOLN ONE ×5 (12:56→14:59)
[2019-10-12] MEDS ORDERED: GLYCOPYRROLATE 0.2 MG/ML (ROBINUL) 2 ML VIAL ONE ×2 (12:57→13:04)
[2019-10-12] MEDS ORDERED: NEOSTIGMINE 3 MG/3 ML VIAL ONE (12:57)
[2019-10-12] MEDS ORDERED: ONDANSETRON 4 MG/2 ML (SDV) Z0FRAN ONE (13:04)
[2019-10-12] MEDS ORDERED: MIDAZOLAM 2 MG/2 ML (VERSED) VIAL IV ONE (13:15)
[2019-10-12] MEDS ORDERED: BUP/EPI 0.5% 1:200,000 (MARCAINE) 10ML VIAL IJ ONE (13:28)
--- NOTE | 2019-10-12 14:55 | Progress Note-Post Operative ---
Post-Operative Progess Note Surgeon (s)/Software Configuration Manager (s) Surgeon SOCORRO DIAZ MD Software Configuration Manager: alireza maguire COIL REWIND MACHINE OPERATOR Pre-Operative Diagnosis sx cholelithiasis and umbilical hernia Post-Operative Diagnosis same Procedure & Operative Findings Date of Procedure 10/12/19 Procedure Performed/Findings laparoscopic cholecystectomy and umbilical hernia repair with mesh. Anesthesia Type get Estimated Blood Loss Estimated blood loss (mL): minimal Specimens/Packing Specimens Removed gallbladder SOCORRO DIAZ MD Oct 12, 2019 14:55
[2019-10-12] MEDS ORDERED: PROMETHAZINE INJ 25 MG/ML (PHENERGAN) AMP IVP ONE (15:00)
[2019-10-12] MEDS ORDERED: MEPERIDINE (DEMEROL) INJ 50 MG/ML IVP ONE (15:00)
[2019-10-12] MEDS ORDERED: fentaNYL INJECTION 100 MCG/2 ML AMP IVP ONE (15:00)
[2019-10-12] MEDS ORDERED: HYDROmorphone 2 MG/ML VIAL (DILAUDID) IV ONE (15:00)
--- NOTE | 2019-10-12 16:04 | Anesthesia-General Post-Op ---
General Patient Condition Mental Status/LOC: Same as Preop Cardiovascular: Satisfactory Nausea/Vomiting: Absent Respiratory: Satisfactory Pain: Controlled Complications: Absent Post Op Complications Complications None Follow Up Care/Instructions Patient Instructions None needed. Anesthesia/Patient Condition Patient Condition Patient is doing well, no complaints, stable vital signs, no apparent adverse anesthesia problems. No complications reported per nursing. RACHEAL SHERMAN CRNA Oct 12, 2019 16:04
[2019-10-12] MEDS: oxyCODONE/APAP 5/325MG (PERCOCET 5) TABLET PO PRN ×2 (16:28→17:04)
--- NOTE | 2019-10-13 01:49 | OPERATIVE REPORT ---
DATE OF SERVICE: 10/12/2019 ATTENDING PRIMARY CARE PHYSICIAN: Rosemary Moser APRN PREOPERATIVE DIAGNOSES: Symptomatic chronic calculous cholecystitis, reducible umbilical hernia. POSTOPERATIVE DIAGNOSES: Symptomatic chronic calculous cholecystitis, reducible umbilical hernia. PROCEDURE: Laparoscopic cholecystectomy and umbilical hernia repair with mesh. SURGEON: Socorro Diaz MD FISHERY BIOLOGIST: Lewis Morris APRN ANESTHESIA: General endotracheal. ESTIMATED BLOOD LOSS: Minimal. FINDINGS: A hernia defect approximately 1.5 cm in size, one solitary large gallstone. DISPOSITION: The patient tolerated the procedure well. INDICATIONS: The patient is a 39-year-old female with a 2-year history of pain in the right upper abdominal quadrant with abdominal bloating and mild nausea. She states that this was initially mild and infrequent; however, the past few months has become much more frequent as well as more severe. An ultrasound was performed, which did show gallstones. She also does have an umbilical hernia, which is palpable and reducible; however, tender to palpation. DESCRIPTION OF PROCEDURE: The patient was brought to the operating room, laid supine on the table. After adequate IV pain and sedative medications and general endotracheal intubation, the abdomen was prepped and draped in standard surgical fashion. A 0.5% Marcaine with epinephrine was used to anesthetize overlying skin left upper abdominal quadrant and a transverse skin incision made using 15 blade. An 0 silk suture was applied to the medial aspect incision for retraction and a Veress needle inserted with a low opening pressure of 0 mmHg. The abdomen was then insufflated to 15 mmHg pressure. The Veress needle removed and a 5 mm XL trocar placed followed by a 5 mm 45-degree angle laparoscope visualizing the peritoneal cavity. A 4-quadrant abdominal exploration was performed. The gallbladder was distended with omental adhesions from the gallbladder consistent with chronic inflammation. There was an umbilical hernia also identified with a defect approximately 1.5 to 2 cm in size. Under direct visualization, we then proceeded to place a supraumbilical port through the hernia sac under direct visualization after the skin and hernia sac were anesthetized using 0.5% Marcaine with epinephrine and a transverse skin incision made using a 15 blade. In a similar manner, a right upper abdominal quadrant 5 mm port was placed. The patient was then placed in reverse Trendelenburg position as well as plane right side up, left side down. The fundus of the gallbladder was then retracted anteriorly and superiorly and the omental adhesions were taken down using blunt dissection as well as electrocautery and hook instrument. The hepatoduodenal ligament was then opened and dissected using the hook instrument. The entire critical view of safety was identified including the triangle of Calot as well as the cystic duct and artery as the only two structures going into the gallbladder as well as the cystic plate behind the proximal gallbladder. A timeout was then taken and the cystic duct and artery were then clipped proximally, distally and cut with EndoShears. The gallbladder was then dissected off the liver bed using cautery on hook instrument with visualization of good hemostasis as well as no leaking ducts of Luschka. The gallbladder was removed through the 10 mm port site using an EndoCatch bag. We then proceeded to dissect out the hernia sac through the 10 mm port site. A 6.4 cm round coated polypropylene mesh was then placed into the defect and then tacked with absorbable tacks under direct visualization. We then proceeded to place transfascial sutures to the mesh under direct visualization using 0 Prolene suture. The abdomen was desufflated. The remaining ports removed. All skin incisions were closed using 4-0 Monocryl running subcuticular sutures. Wounds were then cleaned and covered with Dermabond. The patient tolerated the procedure well. We will start IV normal pain medication as well as a clear liquid diet. Once she is tolerating clears, has good pain control with oral pain medications, ambulating well, we will discharge her home. She will be instructed to do no heavy lifting or exertion for the next two weeks. Job ID: [id number] DocumentID: [id number] Dictated Date: 10/12/2019 15:03:35 Trench Digger Helper Date: 10/13/2019 01:48:11 Dictated By: SOCORRO DIAZ MD
== END 2019-10-12 17:35 | disposition home or self-care (01) ==
LOC: SDC 11:37
PROVIDERS: ATTEND Surgery
DX: K80.10 Calculus of gallbladder with chronic cholecystitis without obstruction (principal); K42.9 Umbilical hernia without obstruction or gangrene; Z11.2 Encounter for screening for other bacterial diseases
CPT/HCPCS: 47562; 84703; 85025; 87081; 88302; 88304; 94664; C1781; 36415

== ENCOUNTER → 2020-03-21 | Outpatient (CLI) | payer BC, OTHER ==
[~2020-03-21] MED LIST changes: +HYDR-3817 PO
--- NOTE | 2020-03-21 16:41 | Diagnostic Imaging Report ---
PROCEDURE: US Non-ob pelvis comp/trans. TECHNIQUE: Multiple realtime grayscale images were obtained of the pelvis in various projections endovaginally. Transabdominal imaging was also performed. INDICATION: Left lower quadrant pain. The previous pelvic ultrasound exam of 08/29/2019 noted regional areas of asymmetric hypoechogenicity within the uterus and raised a question of small fibroids. There also appears to be a 2 cm left paraovarian cyst. On this exam the uterus is enlarged and nongravid. The uterus measures 14.2 x 5.5 x 7.6 cm. Along the posterior aspect of the uterine body/fundus there is a 1.5 x 1.0 cm area of slightly altered echogenicity. This may represent a small fibroid. The endometrial lining is not thickened measuring 3 mm. There is now a sizable 5.7 x 7.6 cm septated cyst in the left adnexa. This does contain some internal echoes and I suspect that the cyst has been slightly complicated by infection and/or hemorrhage. The right ovary is unremarkable. There is good blood flow to each ovary and there is no sign of torsion. There is no solid pelvic mass or free fluid noted. IMPRESSION: 1. The uterus is enlarged and there may be a small fibroid along the posterior aspect of the uterine body/fundus. 2. There is now a sizable 5.7 x 7.6 cm septated complex cyst arising from the left ovary. If further evaluation of this finding is desired, then a short-term (4-6 week) follow-up ultrasound exam would be recommended. 3. There is no acute pelvic abnormality noted otherwise. Dictated by: Dictated on workstation # [id number]
== END ==
LOC: RAD 14:56
PROVIDERS: ATTEND Surgery
DX: N83.292 Other ovarian cyst, left side (principal); N85.2 Hypertrophy of uterus
CPT/HCPCS: 76830; 76856

== ENCOUNTER 2020-03-29 10:24 | Day surgery (SDC) | payer BC, OTHER ==
[2020-03-29] VITALS (16 sets, daily range): BP systolic 107–158; BP diastolic 57–108
[2020-03-29] MEDS ORDERED: ONDANSETRON 4 MG/2 ML (SDV) Z0FRAN ONE (10:33)
[2020-03-29] MEDS ORDERED: fentaNYL INJECTION 100 MCG/2 ML AMP ONE (10:33)
[2020-03-29] MEDS ORDERED: proPOfol 200 MG/20 ML (DIPRIVAN) VIAL IV ONE (10:33)
[2020-03-29] MEDS ORDERED: ROCURONIUM 10 MG/ML 5 ML SYRINGE IV ONE ×2 (10:33→13:35)
[2020-03-29] MEDS ORDERED: LIDOCAINE PF 2% 5 ML (XYLOCAINE) VIAL ONE (10:33)
[2020-03-29] MEDS ORDERED: MIDAZOLAM 2 MG/2 ML (VERSED) VIAL ONE (10:34)
[2020-03-29] MEDS ORDERED: BUPIVACAINE 0.25% 30 ML (SENSORCAINE) VIAL ONE (10:36)
[2020-03-29] MEDS ORDERED: MIDAZOLAM 2 MG/2 ML (VERSED) VIAL IV ONE (11:00)
[2020-03-29] MEDS ORDERED: SEVOFLURANE (ULTANE) 15 ML INHAL SOLN ONE ×8 (11:14→13:59)
[2020-03-29] MEDS: LACTATED RINGERS 1,000 ML IV PRN ×2 (11:21→14:28)
[2020-03-29 11:29] LABS: BASOPHILS % (AUTO) 0 % (0-10); EOSINOPHILS % (AUTO) 1 % (0-10); HEMATOCRIT 38 % (35-52); HEMOGLOBIN 13.2 g/dL (11.5-16.0); LYMPHOCYTES % (AUTO) 25 % (12-44); MEAN CORPUSCULAR HEMOGLOBIN 31 pg (25-34); MEAN CORPUSCULAR HGB CONC 35 g/dL (32-36); MEAN CORPUSCULAR VOLUME 90 fL (80-99); MEAN PLATELET VOLUME 10.4 fL (9.0-12.2); MONOCYTES # (AUTO) 0.2 10^3/uL (0.0-1.0); MONOCYTES % (AUTO) 6 % (0-12); NEUTROPHILS # (AUTO) 2.6 10^3/uL (1.8-7.8); NEUTROPHILS % (AUTO) 67 % (42-75); PLATELET COUNT 199 10^3/uL (130-400); WHITE BLOOD COUNT 3.8 10^3/uL (4.3-11.0)
[2020-03-29] MEDS ORDERED: WATER (STERILE) FOR INJECTION 10 ML ONE (11:32)
[2020-03-29] MEDS ORDERED: ceFAZolin INJECTION 1,000 MG ONE (11:32)
[2020-03-29] MEDS ORDERED: LISI20TA PO (12:07)
[2020-03-29] MEDS ORDERED: HYDROmorphone 2 MG/ML VIAL (DILAUDID) ONE (12:34)
[2020-03-29] MEDS ORDERED: KETOROLAC 30 MG/ML VIAL ONE (14:04)
[2020-03-29] MEDS ORDERED: KETOROLAC 30 MG/ML VIAL IVP ONE (14:15)
[2020-03-29] MEDS ORDERED: ACETAMINOPHEN 500 MG TAB (TYLENOL) PO PRN (14:15)
--- NOTE | 2020-03-29 14:15 | Operative Report ---
Operative Report Date of Procedure/Surgery Mar 29, 2020 Surgeon (s) GILLIAN BROWN DO Housekeeper Child Care (s): Rishi Tinoco, MS III Post-Operative Diagnosis left ovarian cyst with hemorrhagic cyst omental adhesions adhesions Procedure Performed Laparoscopy with left oophorectomy, lysis of adhesions Description of Procedure Anesthesia Type: General Estimated blood loss (mL): 50 ml Specimen(s) collected/removed left ovary Description of the Procedure With informed consent the patient was taken to the operating room where general anesthesia was found to be adequate. she was then prepped and draped in the usual sterile fashion in the dorsolithotomy position. The bladder was drained of clear, yellow urine and then a speculum was placed in the vagina. The tenaculum was placed on the cervix and a LYFE Kitchen uterine manipulator was placed to assist with uterine manipulation. Attention was turned to the abdomen where the umbilicus was injected with 1% lidocaine with epinephrine. A 5 mm skin incision was made and a Veress needle was inserted. intraabdominal placement was confirmed with a saline drop test and a drop in pressure. The abdomen was insufflated to a maximum pressure of 15 mmHg. A 5 mm trocar was now inserted under direct visualization with the optiview. A survey of the pelvis was then done. The left ovary was adherent to the left pelvic side wall and there was a large cyst that appeared to be either an endometrioma vs hemorrhagic cyst. There were some adhesions above the umbilicus from previous surgery, and these were left as is. There was no bowel adherent and no bleeding. There were some filmy adhesions of the omentum to the anterior abdominal wall and there were taken down with the Harmonic scalpel with good hemostasis. I then inserted to additional 5 mm trocars in the left lower quadrant and avoiding the inferior epigastric vessels. These were done under direct visualization with the Optiview. I then began dissection of the cyst from the left pelvic side wall. As it was so adherent, I opted to remove the entire cyst. She previously had had salpingectomy. I was able to gently dissect out the infundibulopelvic ligament on the left to allow a clamp with the Harmonic scalpel. I clamped over the left infundibulopelvic ligament and then cauterized and transected. This was high up on the left pelvic sidewall and well away from the ureter. The ureter was seen the entire time and was away from the area of dissection. I then grasped the left ovary and gently dissected this off the left pelvic side wall. This also included the left round ligament and this was gently dissected from the left side of the pelvis/anterior abdominal wall. During this dissection, the ovarian cyst began to drain dark fluid consistent with either an endometrioma or old hemorrhage. Once the ovary and cyst was dissected, I made an incision in the section scar and inserted a 10-12 mm Trocar under direct visualization. I then inserted the laparoscopic bag and removed the ovary and cyst through the suprapubic incision. This was sent for pathology. I then removed the trocar and placed a figure of eight stitch in the fascia, closing the defect. The skin was then closed with 4-0 Monocryl. i then irrigated the pelvis. There was bleeding along the area that was dissected and this was controlled with cautery. I then placed Surgiflo along the dissected area for hemostasis. I then suctioned the gas and then removed the instruments and trocars from the pelvis. This was done under direct visualization. I then closed the skin incisions with skin glue The instruments were removed from the cervix and vagina. there was a small amount of bleeding from the cervix, but this was controlled with pressure from the ring forceps. The patient was awakened and taken to the recovery room in a stable condition. Sponge, lap, needle and instrument counts wre correct times two. Findings of the Procedure enlarged left ovary with multiple cystic areas, appears benign old hemorrhage vs endometrioma ovary adherent to the left ovary and left pelvic side wall Allergies and Home Medications Allergies Coded Allergies: No Known Drug Allergies (Unverified , 10/09/19) Home Medications Acetaminophen 500 Mg Tablet, 1,000 MG PO Q8H PRN for PAIN-MILD (1-4) Prescribed by: GILLIAN BROWN on 03/29/20 141 Ibuprofen 600 Mg Tablet, 600 MG PO Q6HR Prescribed by: GILLIAN BROWN on 03/29/20 141 Lisinopril 20 Mg Tablet, 20 MG PO DAILY, (Reported) Norethindrone-E.estradiol-Iron 1 Each Capsule, 1 EACH PO DAILY, (Reported) Oxycodone Hcl 5 Mg Tab, 5 MG PO Q4H PRN for PAIN-SEVERE (8-10) Prescribed by: GILLIAN BROWN on 03/29/20 1419 Promethazine HCl 25 Mg Tablet, 25 MG PO Q4H PRN for NAUSEA/VOMITING-2ND LINE Prescribed by: GILLIAN BROWN on 03/30/20 1012 Patient Home Medication List Home Medication List Reviewed: Yes GILLIAN BROWN DO Mar 29, 2020 14:15
--- NOTE | 2020-03-29 14:18 | Discharge Inst-Women's Service ---
Discharge Inst-Women's Serv Depart Medication/Instructions New, Converted or Re-Newed RX: RX on Chart Final Diagnosis complex left ovarian cyst periuterine adhesions Problems Reviewed?: Yes Consults/Follow Up Additional Follow Up: Yes (1 week for incision check) Activity Activity: Activity as Tolerated Driving Instructions: No Driving for 24 Hours NO SMOKING: NO SMOKING Nothing Inside Vagina: No Douching, No [place], No Tampons Diet Discharge Diet: No Restrictions Symptoms to Report to : Bleeding Excessive, Pain Increased, Fever Over 101 Degrees F, Vaginal Bleeding Increase, Cramps in Feet or Legs, Vaginal Discharge Foul For Any Problems or Questions: Contact Your Physician Skin/Wound Care Infection Signs and Symptoms: Increased Redness, Foul Odor of Wound, Increased Drainage, Skin Itchy or Has a Rash, Increased Swelling, Temperature Above 101 F Operative Area Clean and Dry: Keep Incision Clean/Dry, You May Remove Bandage (tomorrow) Stitches/Belkis/Dermabond: Dermabond Bathing Instructions: GILLIAN Conde DO Mar 29, 2020 14:18
[2020-03-29] MEDS ORDERED: ACET-93 PO (14:19)
[2020-03-29] MEDS ORDERED: IBUP-844 PO (14:19)
[2020-03-29] MEDS ORDERED: OXC5T PO (14:19)
[2020-03-29] MEDS ORDERED: MEPERIDINE (DEMEROL) INJ 50 MG/ML IVP ONE (14:30)
[2020-03-29] MEDS ORDERED: HYDROmorphone 2 MG/ML VIAL (DILAUDID) IV ONE (14:30)
[2020-03-29] MEDS ORDERED: PROMETHAZINE INJ 25 MG/ML (PHENERGAN) AMP IVP ONE ×2 (14:30→17:30)
[2020-03-29] MEDS ORDERED: ONDANSETRON 4 MG/2 ML (SDV) Z0FRAN IVP PRN ×2 (14:30→17:30)
[2020-03-29] MEDS ORDERED: morphine INJ 10 MG/ML 1ML (SYR OR VIAL) IVP ONE (14:30)
--- NOTE | 2020-03-29 14:39 | Anesthesia-General Post-Op ---
General Patient Condition Mental Status/LOC: Same as Preop Cardiovascular: Satisfactory Nausea/Vomiting: Absent Respiratory: Satisfactory Pain: Controlled Complications: Absent Post Op Complications Complications None Follow Up Care/Instructions Patient Instructions None needed. Anesthesia/Patient Condition Patient Condition Patient is doing well, no complaints, stable vital signs, no apparent adverse anesthesia problems. No complications reported per nursing. RACHEAL SHERMAN CRNA Mar 29, 2020 14:39
[2020-03-29] MEDS ORDERED: ONDANSETRON 4 MG/2 ML (SDV) Z0FRAN IVP ONE (16:30)
[2020-03-29] MEDS ORDERED: PROMETHAZINE INJ 25 MG/ML (PHENERGAN) AMP ONE (17:25)
[2020-03-29] MEDS ORDERED: PROMETHAZINE INJ 25 MG/ML (PHENERGAN) AMP IVP PRN (17:30)
[2020-03-29] MEDS ORDERED: KETOROLAC 30 MG/ML VIAL IVP SCH (17:30)
[2020-03-29] MEDS ORDERED: morphine INJ 10 MG/ML 1ML (SYR OR VIAL) IVP PRN (17:45)
[2020-03-29] MEDS ORDERED: morphine INJ 4 MG/ML 1 ML (VIAL/SYRINGE) IV PRN (19:30)
[2020-03-29] MEDS: KETOROLAC 30 MG/ML VIAL IVP SCH (20:13)
[2020-03-29] MEDS: LACTATED RINGERS 1,000 ML IV SCH (20:13)
[2020-03-29] MEDS ORDERED: lisINopril 20 MG (PRINIVIL) TABLET PO NR (20:30)
[2020-03-29 20:32] LABS: BASOPHILS % (AUTO) 0 % (0-10); EOSINOPHILS % (AUTO) 0 % (0-10); HEMATOCRIT 38 % (35-52); HEMOGLOBIN 12.8 g/dL (11.5-16.0); LYMPHOCYTES # (AUTO) 0.4 10^3/uL (1.0-4.0); LYMPHOCYTES % (AUTO) 5 % (12-44); MEAN CORPUSCULAR HEMOGLOBIN 31 pg (25-34); MEAN CORPUSCULAR HGB CONC 34 g/dL (32-36); MEAN CORPUSCULAR VOLUME 91 fL (80-99); MEAN PLATELET VOLUME 10.1 fL (9.0-12.2); MONOCYTES # (AUTO) 0.1 10^3/uL (0.0-1.0); MONOCYTES % (AUTO) 2 % (0-12); NEUTROPHILS # (AUTO) 7.3 10^3/uL (1.8-7.8); NEUTROPHILS % (AUTO) 93 % (42-75); PLATELET COUNT 182 10^3/uL (130-400); WHITE BLOOD COUNT 7.8 10^3/uL (4.3-11.0)
[2020-03-29 20:45] LABS: BAND NEUTROPHILS 9 %; BASOPHILS % (MANUAL) 0 %; EOSINOPHILS % (MANUAL) 0 %; LYMPHOCYTES % (MANUAL) 7 %; MONOCYTES % (MANUAL) 2 %; NEUTROPHILS % (MANUAL) 80 %; REACTIVE LYMPHOCYTES 2 %
[2020-03-29 20:46] LABS: TOXIC GRANULATION/VACUOLAZATIO 1+
[2020-03-29 21:02] LABS: ALANINE AMINOTRANSFERASE 23 U/L (0-55); ALKALINE PHOSPHATASE 63 U/L (40-136); BILIRUBIN,TOTAL 0.5 MG/DL (0.1-1.0); BUN/CREATININE RATIO 9; CALCIUM 8.4 MG/DL (8.5-10.1); CARBON DIOXIDE 21 MMOL/L (21-32); CHLORIDE 105 MMOL/L (98-107); CREATININE SERUM 0.76 MG/DL (0.60-1.30); GFR ESTIMATED > 60; GLUCOSE 136 MG/DL (70-105); SODIUM 136 MMOL/L (135-145); TOTAL PROTEIN 6.8 GM/DL (6.4-8.2)
[2020-03-30 03:35] VITALS: BP 107/58
[2020-03-30] MEDS: KETOROLAC 30 MG/ML VIAL IVP SCH (03:40)
[2020-03-30 05:55] VITALS: BP 115/59
[2020-03-30 06:03] VITALS: BP 120/60
[2020-03-30] MEDS: LACTATED RINGERS 1,000 ML IV SCH (06:07)
[2020-03-30 06:14] LABS: BASOPHILS % (AUTO) 0 % (0-10); EOSINOPHILS % (AUTO) 0 % (0-10); HEMATOCRIT 33 % (35-52); HEMOGLOBIN 11.4 g/dL (11.5-16.0); LYMPHOCYTES # (AUTO) 0.6 10^3/uL (1.0-4.0); LYMPHOCYTES % (AUTO) 9 % (12-44); MEAN CORPUSCULAR HEMOGLOBIN 32 pg (25-34); MEAN CORPUSCULAR HGB CONC 35 g/dL (32-36); MEAN CORPUSCULAR VOLUME 91 fL (80-99); MEAN PLATELET VOLUME 10.6 fL (9.0-12.2); MONOCYTES # (AUTO) 0.4 10^3/uL (0.0-1.0); MONOCYTES % (AUTO) 5 % (0-12); NEUTROPHILS % (AUTO) 86 % (42-75); PLATELET COUNT 187 10^3/uL (130-400); WHITE BLOOD COUNT 7.1 10^3/uL (4.3-11.0)
[2020-03-30] MEDS ORDERED: ACETAMINOPHEN 500 MG TAB (TYLENOL) PO SCH (07:30)
[2020-03-30] MEDS ORDERED: ACETAMINOPHEN 500 MG TAB (TYLENOL) PO ONE (07:30)
[2020-03-30] MEDS ORDERED: SIMETHICONE 80 MG (MYLICON) CHEW PO PRN (07:45)
[2020-03-30 08:45] VITALS: BP 102/66
[2020-03-30] MEDS ORDERED: lisINopril 20 MG (PRINIVIL) TABLET PO SCH (09:00)
[2020-03-30] MEDS ORDERED: PROMETHAZINE 25 MG (PHENERGAN) TAB PO PRN (10:00)
--- NOTE | 2020-03-30 10:00 | Progress Note ---
Standard Progress Note Progress Notes/Assess & Plan Date Seen by a Provider: Mar 30, 2020 Time Seen by a Provider: 09:40 Progress/Assessment & Plan Patient was admitted for observation last evening after her laparoscopy. She was ready to go home and then had nausea and then emesis x several times. She was thus admitted for IV antiemetics, fluid hydration and observation. She had not taken her antihypertensive and had elevated blood pressures in the evening, so it was given last night. She then had a low normal blood pressure this morning (105/58) causing some dizziness with standing and ambulation. She has received IV zofran and phenergan several times and has received several doses of IV toradol. She has not yet eaten today,, but states she already feels better. Will allow breakfast and then plan DC as long as she is able to keep down solid foods. She has been able to keep down liquids. Laboratory Tests Test 03/29/20 11:20 03/29/20 12:15 03/29/20 20:15 03/30/20 05:35 Range/Units White Blood Count 3.8 L 7.8 7.1 4.3-11.0 10^3/uL Red Blood Count 4.22 4.15 3.62 L 3.80-5.11 10^6/uL Hemoglobin 13.2 12.8 11.4 L 11.5-16.0 g/dL Hematocrit 38 38 33 L 35-52 % Mean Corpuscular Volume 90 91 91 80-99 fL Mean Corpuscular Hemoglobin 31 31 32 25-34 pg Mean Corpuscular Hemoglobin Concent 35 34 35 32-36 g/dL Red Cell Distribution Width 11.6 11.5 11.5 10.0-14.5 % Platelet Count 199 182 187 130-400 10^3/uL Mean Platelet Volume 10.4 10.1 10.6 9.0-12.2 fL Immature Granulocyte % (Auto) 0 0 0 % Neutrophils (%) (Auto) 67 93 H 86 H 42-75 % Lymphocytes (%) (Auto) 25 5 L 9 L 12-44 % Monocytes (%) (Auto) 6 2 5 0-12 % Eosinophils (%) (Auto) 1 0 0 0-10 % Basophils (%) (Auto) 0 0 0 0-10 % Neutrophils # (Auto) 2.6 7.3 6.0 1.8-7.8 10^3/uL Lymphocytes # (Auto) 1.0 0.4 L 0.6 L 1.0-4.0 10^3/uL Monocytes # (Auto) 0.2 0.1 0.4 0.0-1.0 10^3/uL Eosinophils # (Auto) 0.0 0.0 0.0 0.0-0.3 10^3/uL Basophils # (Auto) 0.0 0.0 0.0 0.0-0.1 10^3/uL Immature Granulocyte # (Auto) 0.0 0.0 0.0 0.0-0.1 10^3/uL Coronavirus (COVID-19)(PCR) Negative Negative Neutrophils % (Manual) 80 % Lymphocytes % (Manual) 7 % Monocytes % (Manual) 2 % Eosinophils % (Manual) 0 % Basophils % (Manual) 0 % Band Neutrophils 9 % Reactive Lymphocytes 2 % Toxic Granulation 1+ Sodium Level 136 135-145 MMOL/L Potassium Level 4.0 3.6-5.0 MMOL/L Chloride Level 105 98-107 MMOL/L Carbon Dioxide Level 21 21-32 MMOL/L Anion Gap 10 5-14 MMOL/L Blood Urea Nitrogen 7 7-18 MG/DL Creatinine 0.76 0.60-1.30 MG/DL Estimat Glomerular Filtration Rate > 60 BUN/Creatinine Ratio 9 Glucose Level 136 H 70-105 MG/DL Calcium Level 8.4 L 8.5-10.1 MG/DL Corrected Calcium 8.4 L 8.5-10.1 MG/DL Total Bilirubin 0.5 0.1-1.0 MG/DL Aspartate Amino Transf (AST/SGOT) 20 5-34 U/L Alanine Aminotransferase (ALT/SGPT) 23 0-55 U/L Alkaline Phosphatase 63 40-136 U/L Total Protein 6.8 6.4-8.2 GM/DL Albumin 4.0 3.2-4.5 GM/DL VS - Last 72 Hours, by Label 03/29/20 03/29/20 03/29/20 03/29/20 10:20 14:16 14:16 14:20 Temp 36.5 36.1 Pulse 78 Resp 20 18 15 B/P (MAP) 154/81 (105) 114/65 (81) 120/76 (91) Pulse Ox 99 96 100 O2 Delivery Room Air OxyMask OxyMask OxyMask O2 Flow Rate 10 10 8 03/29/20 03/29/20 03/29/20 03/29/20 14:30 14:30 14:40 14:40 Resp 14 12 B/P (MAP) 121/87 (98) 122/82 (95) Pulse Ox 98 95 O2 Delivery OxyMask OxyMask OxyMask OxyMask O2 Flow Rate 6 8 6 4 03/29/20 03/29/20 03/29/20 03/29/20 14:50 15:00 15:00 15:10 Temp 36.2 Resp 12 14 14 B/P (MAP) 144/83 (103) 139/86 (103) 158/98 (118) Pulse Ox 100 100 100 O2 Delivery OxyMask Room Air OxyMask Room Air O2 Flow Rate 2 2 03/29/20 03/29/20 03/29/20 03/29/20 15:15 15:15 15:45 16:15 Temp 35.9 35.9 35.9 Pulse 76 57 67 Resp 20 18 16 B/P (MAP) 140/108 149/100 125/83 Pulse Ox 94 100 97 O2 Delivery Room Air Room Air Room Air Room Air 03/29/20 03/29/20 03/29/20 03/30/20 20:20 20:20 23:55 03:35 Temp 36.1 36.3 35.7 Pulse 75 71 66 Resp 18 18 18 B/P (MAP) 157/94 (115) 122/75 (91) 107/58 (74) Pulse Ox 97 100 98 O2 Delivery Room Air Room Air Room Air Room Air 03/30/20 03/30/20 03/30/20 03/30/20 05:55 06:03 08:45 08:45 Temp 37.4 Pulse 69 Resp 16 B/P (MAP) 115/59 (77) 120/60 (80) 102/66 (78) Pulse Ox 98 96 O2 Delivery Room Air Room Air Abdomen is soft. She has Bowel sounds but these are diminished She has appropriate tenderness associated with the incisions and these are covered but intact. POD 1 s/p LS with left oophorectomy and lysis of adhesions. Plan dc home later today GILLIAN BROWN DO Mar 30, 2020 10:00
[2020-03-30] MEDS ORDERED: PROM25TA14 PO (10:12)
[2020-03-30 11:07] VITALS: BP 102/66
[2020-03-30] MEDS ORDERED: IBUPROFEN 600 MG (MOTRIN) TAB PO SCH (14:00)
== END 2020-03-30 12:55 | disposition home or self-care (01) ==
LOC: SDC 10:24 → WS 18:23 → SDC 03-30 12:55
PROVIDERS: ATTEND Obstetrics & Gynecology
DX: N83.292 Other ovarian cyst, left side (principal); N80.1 Endometriosis of ovary; K66.0 Peritoneal adhesions (postprocedural) (postinfection); I10 Essential (primary) hypertension; Z79.899 Other long term (current) drug therapy; Z20.822 Contact with and (suspected) exposure to COVID-19; Z80.3 Family history of malignant neoplasm of breast
CPT/HCPCS: 58661; 80053; 84703; 85007; 85025 ×2; 85027; 87081; 88305; U0002; 36415; 87635

== ENCOUNTER 2020-06-11 05:37 | Outpatient (CLI) | payer BC, OTHER ==
[~2020-06-11] VITALS: Ht 177.8 cm; Wt 99.1 kg
[~2020-06-11 05:37] MED LIST changes: +ACET-93 PO; +LISI20TA PO; +OXC5T PO; +PROM25TA14 PO
[2020-06-11] MEDS ORDERED: HYDR25TA4 PO (13:14)
[2020-06-11] MEDS ORDERED: NORE5TAB2 PO (13:14)
== END 2020-06-11 14:26 | disposition home or self-care (01) ==
LOC: PREOP 05:37
PROVIDERS: ATTEND Obstetrics & Gynecology
DX: Z01.818 Encounter for other preprocedural examination (principal)

== ENCOUNTER 2020-06-18 07:04 | Day surgery (SDC) | payer BC, OTHER ==
[~2020-06-18] VITALS: Ht 177.8 cm; Wt 99.1 kg
[2020-06-18] VITALS (13 sets, daily range): BP systolic 105–131; BP diastolic 54–81
[~2020-06-18 07:04] MED LIST changes: +HYDR25TA4 PO; +NORE5TAB2 PO
[2020-06-18] MEDS ORDERED: ceFAZolin 2 GM IV Premixed 50 ML IV ONE (07:15)
[2020-06-18] MEDS ORDERED: metroNIDAZOLE 500MG/100ML IVPB 100 ML IV ONE (07:15)
[2020-06-18] MEDS: LACTATED RINGERS 1,000 ML IV PRN ×2 (07:22→08:27)
[2020-06-18] MEDS ORDERED: GLYCOPYRROLATE 0.2 MG/ML (ROBINUL) 2 ML VIAL ONE ×2 (07:29→10:13)
[2020-06-18] MEDS ORDERED: ONDANSETRON 4 MG/2 ML (SDV) Z0FRAN ONE (07:29)
[2020-06-18] MEDS ORDERED: ROCURONIUM 10 MG/ML 5 ML SYRINGE IV ONE (07:29)
[2020-06-18] MEDS ORDERED: NEOSTIGMINE 3 MG/3 ML VIAL ONE (07:29)
[2020-06-18] MEDS ORDERED: proPOfol 200 MG/20 ML (DIPRIVAN) VIAL IV ONE (07:29)
[2020-06-18] MEDS ORDERED: MIDAZOLAM 2 MG/2 ML (VERSED) VIAL ONE (07:29)
[2020-06-18] MEDS ORDERED: SEVOFLURANE (ULTANE) 15 ML INHAL SOLN ONE ×6 (07:29→10:44)
[2020-06-18] MEDS ORDERED: LIDOCAINE PF 2% 5 ML (XYLOCAINE) VIAL ONE (07:29)
[2020-06-18] MEDS ORDERED: fentaNYL INJ 100 MCG/2 ML AMP ONE (07:30)
[2020-06-18 07:51] LABS: BASOPHILS % (AUTO) 0 % (0-10); EOSINOPHILS # (AUTO) 0.1 10^3/uL (0.0-0.3); EOSINOPHILS % (AUTO) 2 % (0-10); HEMATOCRIT 42 % (35-52); HEMOGLOBIN 14.5 g/dL (11.5-16.0); LYMPHOCYTES # (AUTO) 1.2 10^3/uL (1.0-4.0); LYMPHOCYTES % (AUTO) 29 % (12-44); MEAN CORPUSCULAR HEMOGLOBIN 31 pg (25-34); MEAN CORPUSCULAR HGB CONC 34 g/dL (32-36); MEAN CORPUSCULAR VOLUME 90 fL (80-99); MEAN PLATELET VOLUME 10.3 fL (9.0-12.2); MONOCYTES # (AUTO) 0.3 10^3/uL (0.0-1.0); MONOCYTES % (AUTO) 8 % (0-12); NEUTROPHILS # (AUTO) 2.5 10^3/uL (1.8-7.8); NEUTROPHILS % (AUTO) 62 % (42-75); PLATELET COUNT 201 10^3/uL (130-400); WHITE BLOOD COUNT 4.1 10^3/uL (4.3-11.0)
[2020-06-18] MEDS ORDERED: BUPIVACAINE 0.25% 30 ML (SENSORCAINE) VIAL ONE (07:57)
[2020-06-18] MEDS ORDERED: ONDANSETRON 4 MG/2 ML (SDV) Z0FRAN IV ONE (08:15)
[2020-06-18] MEDS ORDERED: SCOPOLAMINE 1.5 MG (TRANSDERM-SCOP) PATCH TOP ONE (08:15)
[2020-06-18] MEDS ORDERED: FAMOTIDINE 20MG/2ML IV (PEPCID) IV ONE (08:15)
--- NOTE | 2020-06-18 08:18 | Progress Note-Pre Operative ---
Pre-Operative Progress Note H&P Reviewed The H&P was reviewed, patient examined and no changes noted. Date Seen by Provider: June 18, 2020 Time Seen by Provider: 07:40 Date H&P Reviewed: June 18, 2020 Time H&P Reviewed: 07:40 Pre-Operative Diagnosis: abnormal uterine bleeding, endometriosis GILLIAN BROWN DO June 18, 2020 08:18
[2020-06-18] MEDS ORDERED: KETOROLAC 30 MG/ML VIAL ONE (10:17)
[2020-06-18] MEDS ORDERED: HYDROmorphone 2 MG/ML VIAL (DILAUDID) ONE (10:22)
--- NOTE | 2020-06-18 10:27 | Operative Report ---
Operative Report Date of Procedure/Surgery June 18, 2020 Surgeon (s) GILLIAN BROWN DO Hand Plate Stacker (s): Pool Muhammad. MS III Post-Operative Diagnosis endometrioma same Procedure Performed RaT Description of Procedure Anesthesia Type: General Estimated blood loss (mL): 100 Specimen(s) collected/removed uterus Description of the Procedure Patient has had tubal ligation/salpingectomy and has had abnormal uterine bleeding that was initially controlled with conservative measures but is no longer helping. Endometriosis and fibroids noted on previous exam/laparoscopy. After informed consent was obtained, patient was taken into the operating room where general anesthetic was found to be adequate. She was prepped and draped in the usual sterile fashion in the dorsal lithotomy position. A Renee catheter was placed. A speculum was placed in the vagina. The cervix was visualized and the anterior lip was grasped with a sharp toothed tenaculum. The uterus was sounded and depth was approximately 12 centimeters. I placed the Tiffanie device (12 cm) and a 3.5 cm collar was advanced over the cervix. I inserted the Tiffanie without difficulty, inflating the balloon and securing it around the fornix of the cervix. The collar was then secured with sutures at 12 o'clock. Attention was then turned to the patient's abdomen. The skin was injected with lidocaine with epinephrine. A supraumbilical incision was made about 8 mm in length. A Veress needle was inserted and I confirmed intraabdominal placement with a drop in pressure and the saline drop test. The opening pressure was 7 mmHg. I then insufflated the abdomen to a maximum of 15 mmHg with warmed CO2 gas. I placed an additional 8 mm trocar in the left abdomen lateral to the umbilicus approximately 15 cm. She did have some omental adhesions, but I was able to advance the camera past these without difficulty. There was not bowel associated with the adhesion. The second robotic port was placed about 12 cm lateral to the right placement. This was an 8 mm trocar. These were placed under direct visualization of the laparoscope. lidocaine with epinephrine was injected prior to placement of all trocars. When all placements were confirmed, the patient was placed in steep Trendelenburg allowing adequate visualization and the robot was brought in for docking. The docking was accomplished without difficulty. I then took over the command of the robot utilizing the vessel sealer and mono polar eve. I was able to visualize the round ligaments bilaterally and grasped them and cauterized with bipolar cautery and then cut with my eve. At this point, I had to dissect the ovary from its adhesions. As I did this dark fluid consistent with endometrioma, spilled out. This was irrigated and suctioned. I was able to then dissect the ovary off of the uterus. I removed the portion of the ovary that contained the endometrioma. The ovary appeared otherwise normal. As the tubes had already been removed, I moved my dissection to the posterior leaves of the broad ligament. I dissected the posterior leaves of the broad ligament off the uterine arteries skeletonizing them bilaterally. I then took a second clamp with the bipolar cautery and with the eve, transected the vessels away from the lateral aspect to the cervical stroma. I dissected the anterior peritoneum off the lower uterine segment. There were extensive adhesions from the previous sections and previous surgeries. I continually pushed the bladder back and I took excessively great care and I was eventually able to dissect the vesicouterine peritoneum off the lower uterine segment. This took approximately 30-45 minutes as i took great care not to injure the bladder and cautery used sparingly. I then dissected in a V fashion towards the midline between the uterosacral ligaments. This allowed me to skeletonize the uterine vessels bilaterally. The balloon on the TIFFANIE was insufflated. This allowed me to see the TIFFANIE circumferentially. I then performed a colpotomy anteriorly and then amputate with cervix away from the vaginal fornix. I then continued the colpotomy circumferentially. I made sure to include any of the endometrial implants with the specimen. Once this was performed, the assistant clinical nurse manager removed the uterus and cystic tissue, through the vagina. She then left the a lap sponge in the vagina to maintain the pneumoperitoneum. . I then began closure of the vaginal cuff. The uterus was left in the vagina to maintain pneumoperitoneum. I closed the apices of the vaginal cuff with 2-0 Vicryl V lock sutures with a colposuspension through the uterosacral ligaments. This suspended the apices of the vaginal cuff. I extended this to the midline from both sides and overlapped the V lock sutures in the midline. Excellent closure is noted and hemostasis is achieved. All the needles were removed from the patient's abdomen. Now, the robotic instruments were removed and the robot was docked back to laparoscopy. The pelvis was irrigated. There was no active bleeding noted. Bilateral ureters were seen the entire time during the surgery and were peristalsing. There was no excessive bleeding noted. The trocars were removed under direct visualization. The laparoscopic sites were visualized and found to be hemostatic. The trocar sites were injected with 0.25% Marcaine. The skin incisions were closed with 4-0 Monocryl in a subcuticular fashion and then with Dermabond. Op sites were placed over the incision sites. The instruments were removed from the vagina and I noted there were no abrasions. Sponge, lap, needle and instrument counts correct times two. Patient was awakened and taken to recovery in a stable condition. Findings of the Procedure enlarged uterus consistent with adenomyosis and possible fibroids vesicouteral adhesions, extensive left tube and ovary absent right tube absent, Right ovary adherent to the back of the uterus and findings consistent with endometriosis Allergies and Home Medications Allergies Coded Allergies: No Known Drug Allergies (Unverified , 06/18/20) Home Medications Acetaminophen 500 Mg Tablet, 1,000 MG PO Q8HR Prescribed by: GILLIAN BROWN on 06/19/20831 Hydrochlorothiazide 25 Mg Tablet, 25 MG PO DAILY, (Reported) Last Action: Last Taken Edited Ibuprofen 600 Mg Tablet, 600 MG PO Q6H Prescribed by: GILLIAN BROWN on 06/19/20831 Lisinopril 20 Mg Tablet, 20 MG PO DAILY, (Reported) Last Action: Last Taken Edited Oxycodone Hcl 5 Mg Tab, 5 MG PO Q4HR PRN for To achieve TAG Prescribed by: GILLIAN BROWN on 06/19/20831 Simethicone 80 Mg Tab.chew, 80 MG PO Q2HR PRN for GAS Prescribed by: GILLIAN BROWN on 06/19/20831 Patient Home Medication List Home Medication List Reviewed: Yes GILLIAN BROWN DO June 18, 2020 10:27
[2020-06-18] MEDS: KETOROLAC 30 MG/ML VIAL IV SCH ×3 (10:30→17:54)
[2020-06-18] MEDS ORDERED: ONDANSETRON 4 MG/2 ML (SDV) Z0FRAN IV PRN (10:30)
[2020-06-18] MEDS ORDERED: SIMETHICONE 80 MG (MYLICON) CHEW PO PRN (10:30)
[2020-06-18] MEDS ORDERED: CHLORASEPTIC LOZENGE MM PRN (10:30)
[2020-06-18] MEDS ORDERED: morphine INJ 4 MG/ML 1 ML (VIAL/SYRINGE) IVP PRN (10:30)
[2020-06-18] MEDS ORDERED: ONDANSETRON 4 MG (ZOFRAN) ORAL DISSOLVE TAB PO PRN (10:30)
[2020-06-18] MEDS ORDERED: PROMETHAZINE INJ 25 MG/ML (PHENERGAN) AMP IVP ONE (10:45)
[2020-06-18] MEDS ORDERED: morphine INJ 10 MG/ML 1ML (SYR OR VIAL) IVP ONE (10:45)
[2020-06-18] MEDS ORDERED: ONDANSETRON 4 MG/2 ML (SDV) Z0FRAN IVP PRN (10:45)
[2020-06-18] MEDS ORDERED: HYDROmorphone 2 MG/ML VIAL (DILAUDID) IV ONE (10:45)
--- NOTE | 2020-06-18 10:45 | Anesthesia-General Post-Op ---
General Patient Condition Mental Status/LOC: Same as Preop Cardiovascular: Satisfactory Nausea/Vomiting: Absent Respiratory: Satisfactory Pain: Controlled Complications: Absent Post Op Complications Complications None Follow Up Care/Instructions Patient Instructions None needed. Anesthesia/Patient Condition Patient Condition Patient is doing well, no complaints, stable vital signs, no apparent adverse anesthesia problems. No complications reported per nursing. RACHEAL SHERMAN CRNA June 18, 2020 10:45
[2020-06-18] MEDS ORDERED: IBUPROFEN 600 MG (MOTRIN) TAB PO SCH (12:00)
[2020-06-18] MEDS: LACTATED RINGERS 1,000 ML IV SCH ×2 (12:27→21:20)
[2020-06-18] MEDS ORDERED: morphine INJ 4 MG/ML 1 ML (VIAL/SYRINGE) ONE (12:29)
[2020-06-18] MEDS ORDERED: ACETAMINOPHEN 500 MG TAB (TYLENOL) ONE (12:29)
[2020-06-18] MEDS: ACETAMINOPHEN 500 MG TAB (TYLENOL) PO SCH ×2 (12:41→21:20)
[2020-06-18] MEDS ORDERED: oxyCODONE/APAP 5/325MG (PERCOCET 5) TABLET ONE (15:06)
[2020-06-19 00:11] VITALS: BP 104/58
[2020-06-19] MEDS: KETOROLAC 30 MG/ML VIAL IV SCH ×2 (00:11→05:52)
[2020-06-19 05:52] VITALS: BP 95/50
[2020-06-19] MEDS: ACETAMINOPHEN 500 MG TAB (TYLENOL) PO SCH (05:52)
--- NOTE | 2020-06-19 08:28 | Progress Note ---
Standard Progress Note Progress Notes/Assess & Plan Date Seen by a Provider: June 19, 2020 Time Seen by a Provider: 08:30 Progress/Assessment & Plan Patient has done well overnight. Has voided and ambulated. Pain controlled. Plan dc home 06/18/20 06/19/20 06/19/20 00:11 05:52 Temp 37.1 37.0 36.8 Pulse 67 64 57 Resp 18 18 18 B/P (MAP) 105/58 (74) 104/58 (73) 95/50 (65) Pulse Ox 97 96 96 O2 Delivery Room Air Room Air Room Air 06/19/20 00:00 Intake Total 1240 ml Output Total 350 ml Balance 890 ml Final Diagnosis abnormal uterine bleeding endometriosis GILLIAN BORWN DO June 19, 2020 08:28
[2020-06-19] MEDS ORDERED: OXC5T PO (08:32)
[2020-06-19] MEDS ORDERED: IBUP-844 PO (08:32)
[2020-06-19] MEDS ORDERED: SMT80CT PO (08:32)
[2020-06-19] MEDS ORDERED: ACET-93 PO (08:32)
--- NOTE | 2020-06-19 08:34 | Anesthesia-General Post-Op ---
General Patient Condition Mental Status/LOC: Same as Preop Cardiovascular: Satisfactory Nausea/Vomiting: Absent Respiratory: Satisfactory Pain: Controlled Complications: Absent Post Op Complications Complications None Follow Up Care/Instructions Patient Instructions None needed. Anesthesia/Patient Condition Patient Condition Patient is doing well, no complaints, stable vital signs, no apparent adverse anesthesia problems. No complications reported per nursing. CHAPIN LEPE CRNA June 19, 2020 08:34
--- NOTE | 2020-06-19 08:36 | Discharge Inst-Women's Service ---
Discharge Inst-Women's Serv Depart Medication/Instructions New, Converted or Re-Newed RX: RX on Chart Final Diagnosis abnormal uterine bleeding endometriosis Problems Reviewed?: Yes Consults/Follow Up Additional Follow Up: Yes (1 week and 10 weeks) Activity Activity: Activity as Tolerated Driving Instructions: You May Drive NO SMOKING: NO SMOKING Nothing Inside Vagina: No Douching, No [place], No Tampons Diet Discharge Diet: No Restrictions Symptoms to Report to : Bleeding Excessive, Pain Increased, Fever Over 101 Degrees F, Vaginal Bleeding Increase, Cramps in Feet or Legs, Vaginal Discharge Foul For Any Problems or Questions: Contact Your Physician Skin/Wound Care Infection Signs and Symptoms: Increased Redness, Foul Odor of Wound, Increased Drainage, Skin Itchy or Has a Rash, Increased Swelling, Temperature Above 101 F Operative Area Clean and Dry: You May Remove Bandage (leave inplace) Stitches/[place]/Dermabond: Dermabond Bathing Instructions: GILLIAN Conde DO June 19, 2020 08:36
[2020-06-19] MEDS ORDERED: IBUPROFEN 600 MG (MOTRIN) TAB PO SCH (10:30)
== END 2020-06-19 11:35 | disposition home or self-care (01) ==
LOC: SDC 07:04 → WS 12:05 → SDC 06-19 11:35
PROVIDERS: ATTEND Obstetrics & Gynecology
DX: D25.1 Intramural leiomyoma of uterus (principal); N80.0 Endometriosis of uterus; K66.0 Peritoneal adhesions (postprocedural) (postinfection); I10 Essential (primary) hypertension; Z90.721 Acquired absence of ovaries, unilateral; Z90.79 Acquired absence of other genital organ(s); Z79.891 Long term (current) use of opiate analgesic; Z79.899 Other long term (current) drug therapy; Z80.3 Family history of malignant neoplasm of breast
CPT/HCPCS: 36415; 84703; 85025; 86850; 86900; 86901; 87081; 88307; 94664

== ENCOUNTER 2021-01-31 21:44 | Emergency (ER) | payer BC, OTHER ==
[~2021-01-31] VITALS: Ht 175.2 cm; Wt 98.8 kg
[~2021-01-31 21:44] MED LIST changes: +SMT80CT PO
[2021-01-31] MEDS ORDERED: KETOROLAC 30 MG/ML VIAL IVP STA (21:53)
[2021-01-31] MEDS ORDERED: ONDANSETRON 4 MG/2 ML (SDV) Z0FRAN IVP ONE (22:00)
[2021-01-31] MEDS ORDERED: LACTATED RINGERS 1,000 ML IV ONE (22:00)
--- NOTE | 2021-01-31 22:00 | ED Abdominal Pain ---
General Stated Complaint: RLQ PAIN Source of Information: Patient History of Present Illness Date Seen by Provider: Jan 31, 2021 Time Seen by Provider: 21:49 Initial Comments PT ARRIVES VIA POV FROM HOME C/O RLQ PAIN SINCE SOMETIME DURING THE NIGHT LAST NIGHT PRIOR TO ARRIVAL, WHEN SHE URINATED, THE PAIN RADIATED TO HER RIGHT FLANK NO ACTUAL BURNING ON URINATION, AND VOIDING NORMALLY OTHERWISE PAIN IS CONSTANT, BUT WAXES AND WANES IN INTENSITY PAIN IS WORSE WITH WALKING OR RAISING RIGHT LEG + NAUSEA, ESPECIALLY WHEN PAIN IS BAD NO DIARRHEA--HAD BM YESTERDAY AFTER TAKING MAGNESIUM PILLS NO FEVER TOOK IBUPROFEN AT 1900 TONIGHT WITHOUT RELIEF LAST FOOD INTAKE WAS AT 1400 TODAY--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, DOES NOT ACTUALLY HAVE A FAMILY DR Allergies and Home Medications Allergies Coded Allergies: No Known Drug Allergies (Unverified , 06/18/20) Patient Home Medication List Home Medication List Reviewed: Yes Acetaminophen (Acetaminophen) 500 Mg Tablet, 1,000 MG PO Q8HR Prescribed by: GILLIAN BROWN on 06/19/20 0832 Hydrochlorothiazide (Hydrochlorothiazide) 25 Mg Tablet, 25 MG PO DAILY, (Reported) Entered as Reported by: JEFF BLACKMAN on 06/11/20 1314 Hydrocodone/Acetaminophen (Hydrocodone-Acetamin 5-325 mg) 1 Each Tablet, 1 EACH PO Q4-6 HOURS PRN for PAIN Prescribed by: DOUGLAS ESTEVEZ on 02/01/21 0156 Ibuprofen (Ibu) 600 Mg Tablet, 600 MG PO Q6H Prescribed by: GILLIAN BROWN on 06/19/20 0832 Lisinopril (Prinivil) 20 Mg Tablet, 20 MG PO DAILY, (Reported) Entered as Reported by: RESHMA TERRY on 03/29/20 1207 Ondansetron (Ondansetron Odt) 4 Mg Tab.rapdis, 4 MG PO Q4H Prescribed by: DOUGLAS ESTEVEZ on 02/01/21 0155 Oxycodone Hcl (Oxyir Tablet) 5 Mg Tab, 5 MG PO Q4HR PRN for To achieve TAG Prescribed by: GILLIAN BROWN on 06/19/2032 Simethicone (Mi-Acid) 80 Mg Tab.chew, 80 MG PO Q2HR PRN for GAS Prescribed by: GILLIAN BROWN on 06/19/2032 Review of Systems Review of Systems Constitutional: no symptoms reported Respiratory: No Symptoms Reported Cardiovascular: No Symptoms Reported Gastrointestinal: See HPI, Abdominal Pain, Nausea; Denies Vomiting Genitourinary: See HPI Musculoskeletal: see HPI, back pain Skin: no symptoms reported Psychiatric/Neurological: No Symptoms Reported Endocrine: No Symptoms Reported Hematologic/Lymphatic: No Symptoms Reported Past Zdaphru-Nvnitl-Jmbkmm Hx Patient Social History Tobacco Use?: No Substance use?: No Alcohol Use?: No Seasonal Allergies Seasonal Allergies: No Past Medical History Surgeries: Yes ( X 2; HYST / LSO) Section, Gallbladder, Hysterectomy, Oophorectomy, Tonsillectomy Respiratory: No Currently Using CPAP: No Currently Using BIPAP: No Cardiac: Yes Hypertension Neurological: No Reproductive Disorders: Yes Female 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 Sexually Transmitted Disease: No HIV/AIDS: No Genitourinary: No Gastrointestinal: Yes (S/P CORRINE) Gall Bladder Disease Musculoskeletal: No Endocrine: No HEENT: No Loss of Vision: Denies Hearing Impairment: Denies Cancer: No Psychosocial: No Integumentary: No Blood Disorders: No Adverse Reaction/Blood Tranf: No (N/A) Family Medical History Diabetes mellitus (father) 19 FATHER FH: Crohn's disease (father) 19 FATHER Kidney disease 19 FATHER (stage 4 renal failure) Physical Exam Vital Signs Vital Signs - First Documented 01/31/21 22:06 Temp 36.2 Pulse 99 Resp 18 B/P (MAP) 175/115 (135) Pulse Ox 100 O2 Delivery Room Air Capillary Refill : Height/Weight/BMI Height: 5'9.00" Weight: 244lbs. 2.0oz. 110.894673nq; 31.34 BMI Method:Stated General Appearance: WD/WN, no apparent distress, other (WALKS UPRIGHT AND MOVES WITHOUT DIFFICULTY) Respiratory: normal breath sounds, no respiratory distress, no accessory muscle use Cardiovascular: regular rate, rhythm, no murmur Gastrointestinal: normal bowel sounds, soft, no organomegaly; No distended, No guarding, No rebound; tenderness (RLQ AND RIGHT FLANK TENDERNESS); No hernia, No mass Extremities: normal inspection Back: no vertebral tenderness, CVA tenderness (R) Neurologic/Psychiatric: cutting pressman II-XII nml as tested, no motor/sensory deficits, alert, normal mood/affect, oriented x 3 Skin: normal color, warm/dry; No rash Progress/Results/Core Measures Results/Orders Lab Results Laboratory Tests Test 01/31/21 21:59 01/31/21 22:03 Range/Units Urine Color YELLOW Urine Clarity CLEAR Urine pH 7.0 5-9 Urine Specific [place] <=1.005 1.016-1.022 Urine Protein NEGATIVE NEGATIVE Urine Glucose (UA) NEGATIVE NEGATIVE Urine Ketones NEGATIVE NEGATIVE Urine Nitrite NEGATIVE NEGATIVE Urine Bilirubin NEGATIVE NEGATIVE Urine Urobilinogen 0.2 < = 1.0 MG/DL Urine Leukocyte Esterase NEGATIVE NEGATIVE Urine RBC (Auto) TRACE-I H NEGATIVE Urine RBC RARE /HPF Urine WBC 0-2 /HPF Urine Crystals NONE /LPF Urine Bacteria TRACE /HPF Urine Casts NONE /LPF Urine Mucus NEGATIVE /LPF Urine Culture Indicated NO White Blood Count 6.3 4.3-11.0 10^3/uL Red Blood Count 4.64 3.80-5.11 10^6/uL Hemoglobin 14.5 11.5-16.0 g/dL Hematocrit 42 35-52 % Mean Corpuscular Volume 90 80-99 fL Mean Corpuscular Hemoglobin 31 25-34 pg Mean Corpuscular Hemoglobin Concent 35 32-36 g/dL Red Cell Distribution Width 11.6 10.0-14.5 % Platelet Count 220 130-400 10^3/uL Mean Platelet Volume 9.6 9.0-12.2 fL Immature Granulocyte % (Auto) 0 % Neutrophils (%) (Auto) 62 42-75 % Lymphocytes (%) (Auto) 30 12-44 % Monocytes (%) (Auto) 7 0-12 % Eosinophils (%) (Auto) 1 0-10 % Basophils (%) (Auto) 0 0-10 % Neutrophils # (Auto) 3.9 1.8-7.8 10^3/uL Lymphocytes # (Auto) 1.9 1.0-4.0 10^3/uL Monocytes # (Auto) 0.4 0.0-1.0 10^3/uL Eosinophils # (Auto) 0.1 0.0-0.3 10^3/uL Basophils # (Auto) 0.0 0.0-0.1 10^3/uL Immature Granulocyte # (Auto) 0.0 0.0-0.1 10^3/uL Sodium Level 138 135-145 MMOL/L Potassium Level 3.4 L 3.6-5.0 MMOL/L Chloride Level 105 98-107 MMOL/L Carbon Dioxide Level 23 21-32 MMOL/L Anion Gap 10 5-14 MMOL/L Blood Urea Nitrogen 9 7-18 MG/DL Creatinine 0.82 0.60-1.30 MG/DL Estimat Glomerular Filtration Rate 77 BUN/Creatinine Ratio 11 Glucose Level 96 70-105 MG/DL Calcium Level 9.3 8.5-10.1 MG/DL Corrected Calcium 8.5-10.1 MG/DL Total Bilirubin 0.7 0.1-1.0 MG/DL Aspartate Amino Transf (AST/SGOT) 20 5-34 U/L Alanine Aminotransferase (ALT/SGPT) 35 0-55 U/L Alkaline Phosphatase 87 40-136 U/L Total Protein 8.1 6.4-8.2 GM/DL Albumin 4.8 H 3.2-4.5 GM/DL Amylase Level 57 25-125 U/L Lipase 39 8-78 U/L My Orders Orders - DOUGLAS ESTEVEZ DO Ed Iv/Invasive Line Start (01/31/21 21:53) Amylase (01/31/21 21:53) Cbc With Automated Diff (01/31/21 21:53) Comprehensive Metabolic Panel (01/31/21 21:53) Lipase (01/31/21 21:53) Ua Culture If Indicated (01/31/21 21:53) Ed Iv/Invasive Line Start (01/31/21 21:53) Lactated Ringers (Lr 1000 Ml Iv Solution (01/31/21 22:00) Ketorolac Injection (Toradol Injection) (01/31/21 21:53) Ondansetron Injection (Zofran Injectio (01/31/21 22:00) Ct Abd/Pelvis Wo(Kidney Stone) (01/31/21 22:18) Abdomen/Kub 1view (01/31/21 22:18) Fentanyl Inj (Sublimaze Injection) (01/31/21 23:15) Us Non Ob Pelvis Comp/Transvag (01/31/21 23:03) Rx-Hydrocodone/Apap 5-325 Mg (Rx-Vicodin (02/01/21 02:00) Rx-Ondansetron Po (Rx-Zofran Po) (02/01/21 01:56) Ondansetron Injection (Zofran Injectio (02/01/21 02:00) Fentanyl Inj (Sublimaze Injection) (02/01/21 02:00) Medications Given in ED Current Medications Medications Dose Ordered Sig/Rigo Route Start Time Stop Time Status Last Admin Dose Admin Acetaminophen/ Hydrocodone Bitart 1 ea Q4H PRN PO 02/01/21 02:00 02/01/21 03:03 DC 02/01/21 02:16 1 EA Fentanyl Citrate 50 mcg ONCE ONCE IVP 01/31/21 23:15 01/31/21 23:16 DC 02/01/21 00:05 50 MCG Fentanyl Citrate 50 mcg ONCE ONCE IVP 02/01/21 02:00 02/01/21 02:01 DC 02/01/21 02:07 50 MCG Lactated Ringer's 1,000 ml @ 0 mls/hr Q0M ONCE IV 01/31/21 22:00 01/31/21 22:01 DC 01/31/21 22:23 0 MLS/HR Ondansetron HCl 4 mg ONCE ONCE IVP 01/31/21 22:00 01/31/21 22:01 DC 01/31/21 22:23 4 MG Ondansetron HCl 4 mg ONCE ONCE IVP 02/01/21 02:00 02/01/21 02:01 DC 02/01/21 02:08 4 MG Vital Signs/I&O 01/31/21 02/01/21 22:06 02:15 Temp 36.2 36.8 Pulse 99 102 Resp 18 16 B/P (MAP) 175/115 (135) 131/86 Pulse Ox 100 99 O2 Delivery Room Air Room Air Progress Progress Note : Progress Note GIVEN IV FLUIDS, ZOFRAN, TORADOL AND FENTANYL WITH SIGNIFICANT IMPROVEMENT IN PAIN Diagnostic Imaging Comments CT ABDOMEN/PELVIS--PER RADIOLOGIST REPORT AT 2303 FINDINGS: The heart size is normal. The lung bases are clear. The liver is normal in size without focal lesions. Gallbladder surgically absent. No biliary duct dilatation. Spleen is normal. Pancreas and adrenal glands are unremarkable. There is no evidence of nephrolithiasis or obstructive uropathy. The aorta is nonaneurysmal. The bowel gas pattern is nonspecific. The appendix is normal. No free air. No ascites. There is a 4.5 cm solid-appearing right adnexal mass. Bladder is normal. The osseous structures are unremarkable. IMPRESSION: Solid-appearing right adnexal mass presumably of ovarian origin. This can be better characterized with pelvic ultrasound. No evidence of nephrolithiasis or obstructive uropathy. Otherwise unremarkable noncontrast CT abdomen and pelvis status post cholecystectomy PELVIC ULTRASOUND--PER [facility] VIA FAX AT 0150 2 CM SOLID HYPERVASCULAR RIGHT OVARIAN MASS, NO OVARIAN TORSION. Reviewed: Reviewed by Me Departure Impression Primary Impression: RLQ abdominal pain Additional Impression: Mass of right ovary Disposition: HOME, SELF-CARE Condition: Improved Departure-Patient Inst. Decision time for Depature: 01:50 Referrals: NO,LOCAL PHYSICIAN (PCP) Primary Care Physician LEYDI CLARK (Family) Primary Care Physician Patient Instructions: Abdominal Pain, Adult ED, Ultrasound, General, Using Heat for Pain Add. Discharge Instructions: LOTS OF CLEAR LIQUIDS TAKE PAIN AND NAUSEA MEDICATIONS NEEDED FOLLOW UP WITH DR BROWN NEXT WEEK FOR FURTHER CARE--CALL ON WEDNESDAY MORNING TO SCHEDULE APPOINTMENT Scripts Ondansetron (Ondansetron Odt) 4 Mg Tab.rapdis 4 MG PO Q4H for Nausea/Vomiting, #10 TAB Prov: DOUGLAS ESTEVEZ DO 02/01/21 Hydrocodone/Acetaminophen (Hydrocodone-Acetamin 5-325 mg) 1 Each Tablet 1 EACH PO Q4-6 HOURS PRN for PAIN, #20 TAB Prov: DOUGLAS ESTEVEZ DO 02/01/21 DOUGLAS ESTEVEZ DO Jan 31, 2021 22:00
[2021-01-31 22:06] LABS: BILIRUBIN,URINE NEGATIVE (NEGATIVE); CLARITY,URINE CLEAR; COLOR,URINE YELLOW; GLUCOSE, URINE (UA) NEGATIVE (NEGATIVE); KETONES,URINE NEGATIVE (NEGATIVE); LEUKOCYTE ESTERASE ,URINE NEGATIVE (NEGATIVE); NITRITE,URINE NEGATIVE (NEGATIVE); PROTEIN,URINE NEGATIVE (NEGATIVE)
[2021-01-31 22:08] LABS: BASOPHILS % (AUTO) 0 % (0-10); EOSINOPHILS # (AUTO) 0.1 10^3/uL (0.0-0.3); EOSINOPHILS % (AUTO) 1 % (0-10); HEMATOCRIT 42 % (35-52); HEMOGLOBIN 14.5 g/dL (11.5-16.0); LYMPHOCYTES # (AUTO) 1.9 10^3/uL (1.0-4.0); LYMPHOCYTES % (AUTO) 30 % (12-44); MEAN CORPUSCULAR HEMOGLOBIN 31 pg (25-34); MEAN CORPUSCULAR HGB CONC 35 g/dL (32-36); MEAN CORPUSCULAR VOLUME 90 fL (80-99); MEAN PLATELET VOLUME 9.6 fL (9.0-12.2); MONOCYTES # (AUTO) 0.4 10^3/uL (0.0-1.0); MONOCYTES % (AUTO) 7 % (0-12); NEUTROPHILS # (AUTO) 3.9 10^3/uL (1.8-7.8); NEUTROPHILS % (AUTO) 62 % (42-75); PLATELET COUNT 220 10^3/uL (130-400); WHITE BLOOD COUNT 6.3 10^3/uL (4.3-11.0)
[2021-01-31 22:15] LABS: RBC,URINE RARE /HPF
[2021-01-31 22:16] LABS: BACTERIA,URINE TRACE /HPF; WBC,URINE 0-2 /HPF
[2021-01-31 22:17] LABS: ALBUMIN 4.8 GM/DL (3.2-4.5); CHLORIDE 105 MMOL/L (98-107); POTASSIUM 3.4 MMOL/L (3.6-5.0); SODIUM 138 MMOL/L (135-145)
[2021-01-31 22:18] LABS: AMYLASE 57 U/L (25-125); CALCIUM 9.3 MG/DL (8.5-10.1)
[2021-01-31 22:19] LABS: GLUCOSE 96 MG/DL (70-105)
[2021-01-31 22:20] LABS: TOTAL PROTEIN 8.1 GM/DL (6.4-8.2)
[2021-01-31 22:21] LABS: CARBON DIOXIDE 23 MMOL/L (21-32)
[2021-01-31 22:22] LABS: BILIRUBIN,TOTAL 0.7 MG/DL (0.1-1.0)
[2021-01-31 22:23] LABS: ALKALINE PHOSPHATASE 87 U/L (40-136); CREATININE SERUM 0.82 MG/DL (0.60-1.30); GFR ESTIMATED 77
[2021-01-31 22:24] LABS: BUN/CREATININE RATIO 11
[2021-01-31 22:26] LABS: ALANINE AMINOTRANSFERASE 35 U/L (0-55)
[2021-01-31 22:27] LABS: LIPASE 39 U/L (8-78)
--- NOTE | 2021-01-31 23:00 | Diagnostic Imaging Report ---
PROCEDURE: CT urinary tract, rule out kidney stone. TECHNIQUE: Multiple contiguous axial images were obtained through the abdomen and pelvis without the use of intravenous contrast. Auto Exposure Controls were utilized during the CT exam to meet ALARA standards for radiation dose reduction. INDICATION: Flank pain. FINDINGS: The heart size is normal. The lung bases are clear. The liver is normal in size without focal lesions. Gallbladder surgically absent. No biliary duct dilatation. Spleen is normal. Pancreas and adrenal glands are unremarkable. There is no evidence of nephrolithiasis or obstructive uropathy. The aorta is nonaneurysmal. The bowel gas pattern is nonspecific. The appendix is normal. No free air. No ascites. There is a 4.5 cm solid-appearing right adnexal mass. Bladder is normal. The osseous structures are unremarkable. IMPRESSION: Solid-appearing right adnexal mass presumably of ovarian origin. This can be better characterized with pelvic ultrasound. No evidence of nephrolithiasis or obstructive uropathy. Otherwise unremarkable noncontrast CT abdomen and pelvis status post cholecystectomy. Dictated by: Dictated on workstation # [id number]
--- NOTE | 2021-01-31 23:04 | Diagnostic Imaging Report ---
INDICATION: Abdominal pain. FINDINGS: The bowel gas pattern is nonspecific. There are surgical clips in the right upper quadrant. There are no abnormal abdominal calcifications. The osseous structures are unremarkable. IMPRESSION: Nonspecific bowel gas pattern Dictated by: Dictated on workstation # [id number]
[2021-01-31] MEDS ORDERED: fentaNYL INJ 100 MCG/2 ML AMP IVP ONE (23:15)
[2021-02-01] MEDS ORDERED: ONDA4TAB11 PO (01:55)
[2021-02-01] MEDS ORDERED: ACHD5005 PO (01:55)
[2021-02-01] MEDS ORDERED: RX-ONDANSETRON 4 MG ODT (ZOFRAN) PPK #4 PO STA (01:56)
[2021-02-01] MEDS ORDERED: fentaNYL INJ 100 MCG/2 ML AMP IVP ONE (02:00)
[2021-02-01] MEDS ORDERED: ONDANSETRON 4 MG/2 ML (SDV) Z0FRAN IVP ONE (02:00)
[2021-02-01 02:15] VITALS: BP 131/86
--- NOTE | 2021-02-01 05:16 | Diagnostic Imaging Report ---
PROCEDURE: US Non-ob pelvis comp/trans. TECHNIQUE: Multiple realtime grayscale images were obtained of the pelvis in various projections endovaginally. Transabdominal imaging was also performed. INDICATION: Right lower quadrant pain. Evaluate for ovarian torsion. History of partial hysterectomy. COMPARISON: CT abdomen and pelvis performed earlier the same date. FINDINGS: The uterus and left ovary are surgically absent. No adnexal mass is seen on the left. The right ovary measures 4.8 x 2.9 x 4.6 cm. There is normal color Doppler flow within the right ovary. A solid vascular mass is seen projecting off the right ovary measuring 2.0 x 1.7 x 1.8 cm. Trace free fluid is seen in the pelvis. IMPRESSION: 1. Solid vascular mass within the left ovary measuring 2.0 cm. This is nonspecific and further evaluation with MRI of the pelvis may be considered. 2. Trace free fluid in the pelvis. 3. Surgically absent uterus and left ovary. Agree with overnight report. Dictated by: Dictated on workstation # [id number]
== END 2021-02-01 02:15 | disposition home or self-care (01) ==
LOC: EDUNIT# 21:44 → ER 21:46
DX: N83.291 Other ovarian cyst, right side (principal); I10 Essential (primary) hypertension; Z79.899 Other long term (current) drug therapy
CPT/HCPCS: 36415; 74018; 74176; 76830; 76856; 80053; 81000; 82150; 83690; 85025

== ENCOUNTER → 2021-03-14 | Outpatient (CLI) | payer BC ==
[~2021-03-14] MED LIST changes: +ONDA4TAB11 PO
--- NOTE | 2021-03-14 12:29 | Diagnostic Imaging Report ---
PROCEDURE: Pelvic comp/transvaginal sonogram. TECHNIQUE: Complete transabdominal and transvaginal pelvic ultrasound was performed. In addition, limited pelvic Doppler was performed. INDICATION: Followup right ovarian cyst. Correlation is made with prior ultrasound from 01/31/2021. The uterus and left ovary are surgically absent. Right ovary measures 4.6 x 3.5 x 1.9 cm. Right ovary contains small follicles. There is blood flow to right ovary. Previously noted mass involving the right ovary is not appreciated on today's study. No free fluid is seen. IMPRESSION: Surgically absent uterus and left ovary. Previously noted mass involving the right ovary is no longer appreciated. Dictated by: Dictated on workstation # [id number]
== END ==
LOC: RAD 11:00
PROVIDERS: ATTEND Obstetrics & Gynecology
DX: N83.201 Unspecified ovarian cyst, right side (principal); Z90.710 Acquired absence of both cervix and uterus; Z90.721 Acquired absence of ovaries, unilateral
CPT/HCPCS: 76830; 76856

== ENCOUNTER → 2021-04-11 | Outpatient (CLI) | payer BC ==
--- NOTE | 2021-04-11 11:21 | Diagnostic Imaging Report ---
INDICATION: Routine screening. COMPARISON: No prior mammograms are available for comparison. This a baseline study. 2-D and 3-D bilateral screening mammography was performed with CAD. Both breasts are heterogeneously dense, limiting the sensitivity of mammography. No mass or malignant-appearing microcalcifications are seen. There are occasional benign calcifications in both breasts. Axillae are unremarkable. IMPRESSION: BI-RADS Category 2 No mammographic features suspicious for malignancy are identified. ACR BI-RADS Category 2: Benign findings. Result letter will be mailed to the patient. Note: At least 10% of breast cancer is not imaged by mammography. Dictated by: Dictated on workstation # [id number]
== END ==
LOC: RAD 10:45
PROVIDERS: ATTEND Obstetrics & Gynecology
DX: Z12.31 Encounter for screening mammogram for malignant neoplasm of breast (principal)
CPT/HCPCS: 77063; 77067

== ENCOUNTER → 2022-03-30 | Outpatient (CLI) | payer BC ==
--- NOTE | 2022-03-30 14:58 | Diagnostic Imaging Report ---
INDICATION: Constipation. COMPARISON: 02/01/2020 FINDINGS: There are clips in the gallbladder fossa. There is no finding of a bowel obstruction. While there is stool in the colon, the fecal load is not grossly pathologic and has decreased from the study of 01/31/2021. IMPRESSION: No pathological finding identified. Dictated by: Dictated on workstation # [id number]
== END ==
LOC: RAD 11:21
PROVIDERS: ATTEND Nurse Practitioner Family
DX: K59.00 Constipation, unspecified (principal)
CPT/HCPCS: 74019

== ENCOUNTER 2022-04-06 16:17 | Emergency (ER) | payer BC ==
[2022-04-06] MEDS ORDERED: KETOROLAC 30 MG/ML VIAL IVP ONE (16:30)
[2022-04-06] MEDS ORDERED: NS IV 1000 ML 1,000 ML IV SCH (16:30)
[2022-04-06 16:37] LABS: BASOPHILS % (AUTO) 0 % (0-10); EOSINOPHILS # (AUTO) 0.1 10^3/uL (0.0-0.3); EOSINOPHILS % (AUTO) 2 % (0-10); HEMATOCRIT 38 % (35-52); HEMOGLOBIN 13.1 g/dL (11.5-16.0); LYMPHOCYTES # (AUTO) 1.4 10^3/uL (1.0-4.0); LYMPHOCYTES % (AUTO) 26 % (12-44); MEAN CORPUSCULAR HEMOGLOBIN 31 pg (25-34); MEAN CORPUSCULAR HGB CONC 35 g/dL (32-36); MEAN CORPUSCULAR VOLUME 90 fL (80-99); MEAN PLATELET VOLUME 10.3 fL (9.0-12.2); MONOCYTES # (AUTO) 0.4 10^3/uL (0.0-1.0); MONOCYTES % (AUTO) 8 % (0-12); NEUTROPHILS # (AUTO) 3.4 10^3/uL (1.8-7.8); NEUTROPHILS % (AUTO) 63 % (42-75); PLATELET COUNT 182 10^3/uL (130-400); WHITE BLOOD COUNT 5.3 10^3/uL (4.3-11.0)
--- NOTE | 2022-04-06 16:38 | ED Abdominal Pain ---
General Chief Complaint: Abdominal/GI Problems Stated Complaint: ABD PAIN History of Present Illness Date Seen by Provider: Apr 06, 2022 Time Seen by Provider: 16:20 Initial Comments 42-year-old female presents for abdominal pain, right lower quadrant. Patient reports earlier today the pain was 10/10, it is now a 7/10. She has never had kidney stones in the past. She still has her appendix but her gallbladder has been removed, hysterectomy with left oopherectomy. The right ovary is intact.. 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 She has mild nausea, no vomiting, no noted hematuria. Timing/Duration: 12 Hours Severity/Quality: Moderate Location: RLQ Radiation: Flank (right) Associated Symptoms: No Back Pain, No Chest Pain; Nausea/Vomiting; No Shortness of Air Allergies and Home Medications Allergies Coded Allergies: No Known Drug Allergies (Unverified , 06/18/20) Patient Home Medication List Home Medication List Reviewed: Yes Acetaminophen (Acetaminophen) 500 Mg Tablet, 1,000 MG PO Q8HR Prescribed by: GILLIAN BROWN on 06/19/20 0832 Hydrochlorothiazide (Hydrochlorothiazide) 25 Mg Tablet, 25 MG PO DAILY, (Reported) Entered as Reported by: JEFF BLACKMAN on 06/11/20 1314 Hydrocodone/Acetaminophen (Hydrocodone-Acetamin 5-325 mg) 1 Each Tablet, 1 EACH PO Q4-6 HOURS PRN for PAIN Prescribed by: DOUGLAS ESTEVEZ on 02/01/21 0156 Hydrocodone/Acetaminophen (Hydrocodone-Acetamin 5-325 mg) 5 Mg-325 Mg Tablet, 1 TAB PO Q6H PRN for PAIN-MODERATE (5-7) Prescribed by: MARY CHRIS on 04/06/22 1731 Ibuprofen (Ibu) 600 Mg Tablet, 600 MG PO Q6H Prescribed by: GILLIAN BROWN on 06/19/20 0832 Lisinopril (Prinivil) 20 Mg Tablet, 20 MG PO DAILY, (Reported) Entered as Reported by: RESHMA TERRY on 03/29/20 1207 Nitrofurantoin Monohyd/M-Cryst (Macrobid 100 mg Capsule) 100 Mg Capsule, 1 TAB PO BID Prescribed by: MARY CHRIS on 04/06/22 173 Ondansetron (Ondansetron Odt) 4 Mg Tab.rapdis, 4 MG PO Q4H Prescribed by: DOUGLAS ESTEVEZ on 02/01/21 0155 Oxycodone Hcl (Oxyir Tablet) 5 Mg Tab, 5 MG PO Q4HR PRN for To achieve TAG Prescribed by: GILLIAN BROWN on 06/19/20 0832 Simethicone (Mi-Acid) 80 Mg Tab.chew, 80 MG PO Q2HR PRN for GAS Prescribed by: GILLIAN BROWN on 06/19/20 0832 Review of Systems Review of Systems Constitutional: no symptoms reported, see HPI Gastrointestinal: See HPI, Abdominal Pain, Constipated; Denies Diarrhea; Nausea; Denies Poor Appetite, Denies Vomiting Genitourinary: No Symptoms Reported, See HPI All Other Systems Reviewed Negative Unless Noted: Yes Past Cnhqlzu-Tgsfiv-Judjzq Hx Immunizations Up To Date First/Initial COVID19 Vaccinat: Second COVID19 Vaccination Ronnie: Seasonal Allergies Seasonal Allergies: No Past Medical History Surgery/Hospitalization HX: Gallbladder and Hysterectomy Surgeries: Yes ( X 2; HYST / LSO) Section, Gallbladder, Hysterectomy, Oophorectomy, Tonsillectomy Respiratory: No Currently Using CPAP: No Currently Using BIPAP: No Cardiac: Yes Hypertension Neurological: No Reproductive Disorders: Yes Female Reproductive Disorders: Endometriosis 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 Sexually Transmitted Disease: No HIV/AIDS: No Genitourinary: No Gastrointestinal: Yes (S/P CORRINE) Gall Bladder Disease Musculoskeletal: No Endocrine: No HEENT: No Loss of Vision: Denies Hearing Impairment: Denies Cancer: No Psychosocial: No Integumentary: No Blood Disorders: No Adverse Reaction/Blood Tranf: No (N/A) Family Medical History Reviewed Nursing Family Hx Diabetes mellitus (father) 19 FATHER FH: Crohn's disease (father) 19 FATHER Kidney disease 19 FATHER (stage 4 renal failure) Physical Exam Vital Signs Vital Signs - First Documented 04/06/22 16:22 Temp 36.3 Pulse 83 Resp 18 B/P (MAP) 148/112 (124) Capillary Refill : Height/Weight/BMI Height: 5'9.00" Weight: 244lbs. 2.0oz. 110.864380bm; 32.00 BMI Method:Stated General Appearance: WD/WN, no apparent distress Neck: non-tender, full range of motion, supple, normal inspection Respiratory: chest non-tender, lungs clear, normal breath sounds Cardiovascular: normal peripheral pulses, regular rate, rhythm Gastrointestinal: normal bowel sounds, soft; No distended, No guarding; rebound, tenderness (RLQ), other (no pain with ROM of right hip or resisted SLR. Pain in abd with heel tap) Extremities: normal range of motion, non-tender, normal inspection Neurologic/Psychiatric: no motor/sensory deficits, alert, normal mood/affect, oriented x 3 Skin: normal color, warm/dry Progress/Results/Core Measures Results/Orders Lab Results Laboratory Tests Test 04/06/22 16:30 04/06/22 16:32 Range/Units White Blood Count 5.3 4.3-11.0 10^3/uL Red Blood Count 4.19 3.80-5.11 10^6/uL Hemoglobin 13.1 11.5-16.0 g/dL Hematocrit 38 35-52 % Mean Corpuscular Volume 90 80-99 fL Mean Corpuscular Hemoglobin 31 25-34 pg Mean Corpuscular Hemoglobin Concent 35 32-36 g/dL Red Cell Distribution Width 12.1 10.0-14.5 % Platelet Count 182 130-400 10^3/uL Mean Platelet Volume 10.3 9.0-12.2 fL Immature Granulocyte % (Auto) 0 % Neutrophils (%) (Auto) 63 42-75 % Lymphocytes (%) (Auto) 26 12-44 % Monocytes (%) (Auto) 8 0-12 % Eosinophils (%) (Auto) 2 0-10 % Basophils (%) (Auto) 0 0-10 % Neutrophils # (Auto) 3.4 1.8-7.8 10^3/uL Lymphocytes # (Auto) 1.4 1.0-4.0 10^3/uL Monocytes # (Auto) 0.4 0.0-1.0 10^3/uL Eosinophils # (Auto) 0.1 0.0-0.3 10^3/uL Basophils # (Auto) 0.0 0.0-0.1 10^3/uL Immature Granulocyte # (Auto) 0.0 0.0-0.1 10^3/uL Sodium Level 138 135-145 MMOL/L Potassium Level 4.0 3.6-5.0 MMOL/L Chloride Level 108 H 98-107 MMOL/L Carbon Dioxide Level 22 21-32 MMOL/L Anion Gap 8 5-14 MMOL/L Blood Urea Nitrogen 12 7-18 MG/DL Creatinine 0.82 0.60-1.30 MG/DL Estimat Glomerular Filtration Rate 92 BUN/Creatinine Ratio 15 Glucose Level 93 70-105 MG/DL Calcium Level 8.9 8.5-10.1 MG/DL Corrected Calcium 8.7 8.5-10.1 MG/DL Total Bilirubin 0.3 0.1-1.0 MG/DL Aspartate Amino Transf (AST/SGOT) 26 5-34 U/L Alanine Aminotransferase (ALT/SGPT) 33 0-55 U/L Alkaline Phosphatase 78 40-136 U/L Total Protein 6.8 6.4-8.2 GM/DL Albumin 4.3 3.2-4.5 GM/DL Urine Color YELLOW Urine Clarity CLEAR Urine pH 6.0 5-9 Urine Specific [place] <=1.005 1.016-1.022 Urine Protein NEGATIVE NEGATIVE Urine Glucose (UA) NEGATIVE NEGATIVE Urine Ketones NEGATIVE NEGATIVE Urine Nitrite NEGATIVE NEGATIVE Urine Bilirubin NEGATIVE NEGATIVE Urine Urobilinogen 0.2 < = 1.0 MG/DL Urine Leukocyte Esterase NEGATIVE NEGATIVE Urine RBC (Auto) TRACE-L H NEGATIVE Urine RBC NONE /HPF Urine WBC 0-2 /HPF Urine Squamous Epithelial Cells 5-10 /HPF Urine Crystals NONE /LPF Urine Bacteria MODERATE H /HPF Urine Casts NONE /LPF Urine Mucus NEGATIVE /LPF Urine Culture Indicated YES My Orders Orders - MARY CHRIS Ua Culture If Indicated (04/06/22 16:19) Comprehensive Metabolic Panel (04/06/22 16:29) Ed Iv/Invasive Line Start (04/06/22 16:29) Cbc With Automated Diff (04/06/22 16:29) Ct Abd/Pelv W (Appendicitis) (04/06/22 16:29) Ketorolac Injection (Toradol Injection) (04/06/22 16:30) Ed Iv/Invasive Line Start (04/06/22 16:30) Ns Iv 1000 Ml (Sodium Chloride 0.9%) (04/06/22 16:30) Iohexol Injection (Omnipaque 350 Mg/Ml 1 (04/06/22 16:45) Ns (Ivpb) (Sodium Chloride 0.9% Ivpb Bag (04/06/22 16:45) Urine Culture (04/06/22 16:32) Hydrocodone/Apap 5/325 Tablet (Lortab 5 (04/06/22 17:32) Medications Given in ED Current Medications Medications Dose Ordered Sig/Rigo Route Start Time Stop Time Status Last Admin Dose Admin Iohexol 100 ml ONCE ONCE IV 04/06/22 16:45 04/06/22 16:46 DC 04/06/22 16:54 80 ML Ketorolac Tromethamine 15 mg ONCE ONCE IVP 04/06/22 16:30 04/06/22 16:31 DC 04/06/22 16:37 15 MG Sodium Chloride 100 ml ONCE ONCE IV 04/06/22 16:45 04/06/22 16:46 DC 04/06/22 16:54 80 ML Vital Signs/I&O 04/06/22 04/06/22 16:22 17:54 Temp 36.3 36.3 Pulse 83 74 Resp 18 18 B/P (MAP) 148/112 (124) 144/82 Progress Progress Note : Time: 16:20 Progress Note Patient assessed, will obtain labs and CT abdomen pelvis. Normal saline 1 L per IV and Toradol 15 mg per IV for pain. [address] results discussed with patient. She continues to see Dr. Brown, even after she moved away. She will call for appt. discharge instructions and return precautions reviewed with the patient. Diagnostic Imaging Diagonstic Imaging: CT Plain Films/CT/US/NM/MRI: abdomen, pelvis Comments NAME: MARIZOL BENZ [facility] REC#: [id number] PT STATUS: REG ER : 1980 PHYSICIAN: MARY CHRIS ADMIT DATE: 04/06/22/ER Draft Date of Exam:04/06/22 CT ABD/PELV W (APPENDICITIS) PROCEDURE: CT abdomen and pelvis with contrast, rule out appendicitis. TECHNIQUE: Multiple contiguous axial images were obtained through the abdomen and pelvis after the administration of intravenous contrast. All CT scans use one or more of the following dose optimizing techniques: automated exposure control, MA and/or KvP adjustment based on patient size and exam type or iterative reconstruction. INDICATION: Right lower quadrant pain. FINDINGS: Lung bases are clear. Liver appears normal. Gallbladder is surgically absent. Pancreas appears normal. Portal vein is patent. Common duct is not dilated. Spleen is not enlarged. Kidneys and adrenals appear normal. Small bowel is not dilated. The appendix is normal. There is a cystic mass anterior to the uterus that measures 7.8 x 4.5 x 4.1 cm. This may be a septated cyst or two adjacent cysts, likely of right ovarian origin. There is no intraperitoneal free fluid. Colon is unremarkable. IMPRESSION: Compared to 01/31/2021, there has been interval development of a complex cystic mass in the right ovary which is positioned anterior to the urinary bladder. Uterus and left ovary appear to be surgically absent. Further evaluation with nonemergent ultrasound recommended. Dictated on workstation # [id number] Dict: 04/06/22 1655 Trans: 04/06/22 1704 [id number] Interpreted by: TRISTAN PEREZ MD Electronically signed by: Reviewed: Reviewed by Me Departure Impression Primary Impression: Abdominal pain Qualified Codes: R10.31 - Right lower quadrant pain Additional Impressions: Ovarian cyst Qualified Codes: N83.201 - Unspecified ovarian cyst, right side UTI (urinary tract infection) Qualified Codes: N30.00 - Acute cystitis without hematuria Disposition: HOME, SELF-CARE Condition: Improved Departure-Patient Inst. Decision time for Depature: 17:05 Referrals: NO,LOCAL PHYSICIAN (PCP) Primary Care Physician JUAN A GLASER APRN (Family) Primary Care Physician Patient Instructions: Ovarian Cyst (DC) Add. Discharge Instructions: You can alternate heat and ice to your lower abdomen. Take ibuprofen 600 mg every 8 hours for pain. Follow-up with Dr. Brown Take the prescription pain medicine if the ibuprofen is not controlling your pain. Take antibiotics as directed. Return to the emergency department for new, urgent healthcare problems. All discharge instructions reviewed with patient and/or family. Voiced understanding. Scripts Hydrocodone/Acetaminophen (Hydrocodone-Acetamin 5-325 mg) 5 Mg-325 Mg Tablet 1 TAB PO Q6H PRN for PAIN-MODERATE (5-7), #20 TAB 0 Refills Prov: MARY CHRIS PROFESSOR OF THEATRE 04/06/22 Nitrofurantoin Monohyd/M-Cryst (Macrobid 100 mg Capsule) 100 Mg Capsule 1 TAB PO BID, #6 CAP 0 Refills Prov: ARIES,MARY VELA 04/06/22 MARY CHRIS Apr 06, 2022 16:38
[2022-04-06 16:40] LABS: BILIRUBIN,URINE NEGATIVE (NEGATIVE); CLARITY,URINE CLEAR; COLOR,URINE YELLOW; GLUCOSE, URINE (UA) NEGATIVE (NEGATIVE); KETONES,URINE NEGATIVE (NEGATIVE); LEUKOCYTE ESTERASE ,URINE NEGATIVE (NEGATIVE); NITRITE,URINE NEGATIVE (NEGATIVE); PROTEIN,URINE NEGATIVE (NEGATIVE)
[2022-04-06] MEDS ORDERED: IOHEXOL 350 MG/ML 100 ML (OMNIPAQUE 350) VIAL IV ONE (16:45)
[2022-04-06] MEDS ORDERED: NS 100 ML (IVPB) BAG IV ONE (16:45)
[2022-04-06 16:50] LABS: ALBUMIN 4.3 GM/DL (3.2-4.5)
[2022-04-06 16:52] LABS: CALCIUM 8.9 MG/DL (8.5-10.1)
[2022-04-06 16:53] LABS: TOTAL PROTEIN 6.8 GM/DL (6.4-8.2)
[2022-04-06 16:55] LABS: BILIRUBIN,TOTAL 0.3 MG/DL (0.1-1.0)
[2022-04-06 16:57] LABS: CREATININE SERUM 0.82 MG/DL (0.60-1.30)
--- NOTE | 2022-04-06 17:04 | Diagnostic Imaging Report ---
PROCEDURE: CT abdomen and pelvis with contrast, rule out appendicitis. TECHNIQUE: Multiple contiguous axial images were obtained through the abdomen and pelvis after the administration of intravenous contrast. All CT scans use one or more of the following dose optimizing techniques: automated exposure control, MA and/or KvP adjustment based on patient size and exam type or iterative reconstruction. INDICATION: Right lower quadrant pain. FINDINGS: Lung bases are clear. Liver appears normal. Gallbladder is surgically absent. Pancreas appears normal. Portal vein is patent. Common duct is not dilated. Spleen is not enlarged. Kidneys and adrenals appear normal. Small bowel is not dilated. The appendix is normal. There is a cystic mass anterior to the uterus that measures 7.8 x 4.5 x 4.1 cm. This may be a septated cyst or two adjacent cysts, likely of right ovarian origin. There is no intraperitoneal free fluid. Colon is unremarkable. IMPRESSION: Compared to 01/31/2021, there has been interval development of a complex cystic mass in the right ovary which is positioned anterior to the urinary bladder. Uterus and left ovary appear to be surgically absent. Further evaluation with nonemergent ultrasound recommended. Dictated by: Dictated on workstation # [id number]
[2022-04-06 17:13] LABS: WBC,URINE 0-2 /HPF
[2022-04-06 17:14] LABS: BACTERIA,URINE MODERATE /HPF
[2022-04-06] MEDS ORDERED: ACHD5005 PO (17:30)
[2022-04-06] MEDS ORDERED: NITR-65 PO (17:30)
[2022-04-06] MEDS ORDERED: HYDROcodone/APAP 5 MG/325 MG (LORTAB) TAB PO STA (17:32)
[2022-04-06 17:54] VITALS: BP 144/82
[2022-04-09] MEDS ORDERED: LISI10TA25 PO (14:32)
== END 2022-04-06 18:00 | disposition home or self-care (01) ==
LOC: EDUNIT# 16:17 → ER 16:18
DX: N83.201 Unspecified ovarian cyst, right side (principal); N39.0 Urinary tract infection, site not specified; Z90.49 Acquired absence of other specified parts of digestive tract
CPT/HCPCS: 36415; 74177; 80053; 81000; 85025; 87088

== ENCOUNTER → 2022-04-07 | Outpatient (CLI) | payer BC ==
[~2022-04-07] MED LIST changes: +LISI10TA25 PO; +NITR-65 PO
--- NOTE | 2022-04-07 13:50 | Diagnostic Imaging Report ---
PROCEDURE: US Non-ob pelvis comp/trans. TECHNIQUE: Multiple realtime grayscale images were obtained of the pelvis in various projections endovaginally. Transabdominal imaging was also performed. INDICATION: Right ovarian cyst. COMPARISON: CT abdomen and pelvis from prior day. FINDINGS: Status post hysterectomy and left oophorectomy. Within the right adnexa there is a 5.2 x 4.3 x 4.1 cm cyst arising from the right ovary. Blood flow is present within the right ovary parenchyma. The right ovary itself measures 7.3 x 5.2 x 4.6 cm. No left adnexal mass. No mass at the midline. A trace amount of free pelvic fluid is noted. IMPRESSION: 1. Simple 5 cm right ovarian cyst accounts for the abnormality seen on CT. This may be due to a large nonruptured follicle. Consider followup pelvic ultrasound in 6-12 weeks to ensure resolution. Dictated by: Dictated on workstation # [id number]
== END ==
LOC: RAD 12:30
PROVIDERS: ATTEND Nurse Practitioner Family
DX: N83.201 Unspecified ovarian cyst, right side (principal)
CPT/HCPCS: 76830; 76856

== ENCOUNTER → 2022-04-09 | Outpatient (CLI) | payer BC ==
[~2022-04-09] VITALS: Ht 177.8 cm; Wt 103.5 kg
== END ==
LOC: PREOP 14:21
PROVIDERS: ATTEND Internal Medicine
DX: Z01.818 Encounter for other preprocedural examination (principal); Z12.11 Encounter for screening for malignant neoplasm of colon

== ENCOUNTER 2022-04-10 10:07 | Day surgery (SDC) | payer BC ==
[~2022-04-10] VITALS: Ht 177.5 cm; Wt 103.5 kg
--- NOTE | 2022-04-10 07:18 | HISTORY AND PHYSICAL ---
COLONOSCOPY HISTORY AND PHYSICAL HISTORY OF PRESENT ILLNESS: The patient is a 42-year-old white female who had been set up for first screening colonoscopy by DANE Goldberg. She has had a sister who has had colon polyps and maternal grandmother diagnosed with colon cancer around the age of 70. She had been experiencing right lower quadrant abdominal pain. Over the past 2 weeks, it has become severe enough that she went to the emergency room 2 days ago. She has been taking some anti-inflammatory medication with improvement in her symptoms. In her workup, it is noted that she had an enlarged right ovary measuring 7.3 x 5.2 x 4.6 cm. This appears to be due to a simple 5 cm right ovarian cyst. She denies night sweats, chills or fever. She does have a past history of endometriosis, necessitated left oophorectomy and hysterectomy over 10 years ago. She has not had problems since. She denies any bright red blood per rectum or melena. PAST MEDICAL HISTORY: Significant for hypertension. She takes 30 mg of lisinopril for this reason. PAST SURGICAL HISTORY: Other than left oophorectomy and hysterectomy is pertinent for cholecystectomy a number of years ago. She has had 2 C-sections. FAMILY HISTORY: Noted in the HPI. SOCIAL HISTORY: She does not drink or smoke. Works at [employer]. REVIEW OF SYSTEMS: CONSTITUTIONAL: Denies night sweats, chills, fever and she does not believe her weight has changed much since the onset of her right lower quadrant abdominal pain. GASTROINTESTINAL: As noted in the HPI. PULMONARY: Denies cough, wheezing or shortness of breath. CARDIOVASCULAR: Denies chest pain, orthopnea, PND, pedal edema or syncope. PHYSICAL EXAMINATION: GENERAL: Reveals a pleasant white female who did not appear to be in acute distress. VITAL SIGNS: Weight is 228 pounds with a blood pressure of 128/98. HEENT: Unremarkable. Sclerae nonicteric. CHEST: Clear to auscultation. CARDIOVASCULAR: Reveals a regular rate and rhythm without murmur, S3, or S4. ABDOMEN: Soft, supple without mass or organomegaly. She does have some right lower quadrant discomfort to palpation without rebound or guarding. EXTREMITIES: Revealed no cyanosis, clubbing or edema. ASSESSMENT AND PLAN: The patient is being set up for screening colonoscopy. 1. Prep instructions were given. Questions were answered. 2. Large right ovarian cyst. The patient is undergoing surgical referral for this. The presumed cause of her right lower quadrant abdominal pain. We will discuss further post-colonoscopy. 3. The patient is deemed to have higher than average risk considering family history of colon cancer in her grandmother and a sister who has had multiple colon polyps removed. Job ID: [id number] DocumentID: [id number] Dictated Date: 04/09/2022 10:06:05 Machine Sole Leveler Date: 04/09/2022 10:58:00 Dictated By: LUISANA LUTZ MD MTDD
[2022-04-10] MEDS ORDERED: LACTATED RINGERS 1,000 ML IV STA (10:08)
--- NOTE | 2022-04-10 10:12 | Pre-Op Note & Conscious Sedat ---
Pre-Operative Progress Note Date H&P Reviewed: Apr 10, 2022 Time H&P Reviewed: 10:11 History & Physical: H&P Reviewed, Patient Examed, No changes noted Pre-Op Diagnosis: screening Conscious Sedation Pre-Proced ASA Score 2 For ASA 3 and 4: Consider anesthesia and medical clearance. Also, for patients with a history of failed moderate sedation consider anesthesia. Airway Lungs Heart ASA score ASA 1: a normal healthy patient ASA 2: a patient with a mild systemic disease (mid diabetes, controlled hypertension, obesity ASA 3: a patient with a severe systemic disease that limits activity (angina, COPD, prior Myocardial infarction) ASA 4: a patient with an incapacitating disease that is a constant threat to life (CHF, renal failure) ASA 5: a moribund patient not expected to survive 24 hrs. (ruptured aneurysm) ASA 6: a declared brain- patient whose organs are being harvested. For emergent operations, add the letter E after the classification Mallampati Classification Grade 2 Sedation Plan Analgesia, Amnesia, Plan communicated to team members, Discussed options with patient/fam, Discussed risks with patient/fam The patient is an appropriate candidate to undergo the planned procedure, sedation, and anesthesia. The patient immediately re-assessed prior to indication. LUISANA LUTZ MD Apr 10, 2022 10:12
[2022-04-10] MEDS ORDERED: LACTATED RINGERS 1,000 ML IV ONE (10:15)
[2022-04-10] MEDS ORDERED: LIDOCAINE JELLY 2% 6 ML SYRINGE MM PRN (10:15)
[2022-04-10 10:25] VITALS: BP 127/94
[2022-04-10] MEDS ORDERED: MIDAZOLAM 2 MG/2 ML (VERSED) VIAL ONE (11:14)
[2022-04-10] MEDS ORDERED: PROPOFOL INJECTION 50 ML IV ONE (11:14)
[2022-04-10] MEDS ORDERED: proPOfol 200 MG/20 ML (DIPRIVAN) VIAL IV ONE (11:14)
[2022-04-10 11:48] VITALS: BP 108/67
[2022-04-10 11:51] VITALS: BP 112/70
--- NOTE | 2022-04-10 11:52 | Progress Note-Post Operative ---
Post-Procedure Note Physician (s)/Radio Division Lieutenant (s) Physician LUISANA LUTZ MD Pre-Procedure Diagnosis Pre-Procedure Diagnosis: screening Post-Procedure Diagnosis Post-operative diagnosis: Prior to undergoing colonoscopy digital rectal evaluation was performed. Anal sphincter tone was normal and the perianal reflexes intact. No abnormalities noted on digital inspection of the anal canal or distal rectal vault. The colonoscope was then inserted into the rectum and under direct visualization advanced to the cecum. The cecum was identified by identification of the ileocecal valve and the cecal strap. Photographic documentation obtained. A careful inspection was made as the colonoscope was withdrawn. The quality of the prep was good. Findings: There are no evidence for internal or external hemorrhoids. The rectum sigmoid colon descending colon splenic flexure transverse colon hepatic flexure ascending colon and cecum were unremarkable with no evidence for neoplasia or diverticular disease. Assessment: Normal colonoscopy to the cecum. Considering family history would advocate consideration for repeat screening in 5 years. I thank you for the furl this pleasant lady. CC: Deyanira Chatman APRN. LUISANA LUTZ MD Apr 10, 2022 11:52
[2022-04-10 11:55] VITALS: BP 113/72
[2022-04-10 12:04] VITALS: BP 113/72
--- NOTE | 2022-04-10 12:24 | Anesthesia-General Post-Op ---
MAC Patient Condition Mental Status/LOC: Same as Preop Cardiovascular: Satisfactory Nausea/Vomiting: Absent Respiratory: Satisfactory Pain: Controlled Complications: Absent Post Op Complications Complications None Follow Up Care/Instructions Patient Instructions None needed. Anesthesiology Discharge Order Discharge Order Patient is doing well, no complaints, stable vital signs, no apparent adverse anesthesia problems. No complications reported per nursing. RACHEAL SHERMAN CRNA Apr 10, 2022 12:24
== END 2022-04-10 12:35 | disposition home or self-care (01) ==
LOC: ENDO 10:07
PROVIDERS: ATTEND Internal Medicine
DX: Z12.11 Encounter for screening for malignant neoplasm of colon (principal); N83.201 Unspecified ovarian cyst, right side; Z80.0 Family history of malignant neoplasm of digestive organs; Z83.71 Family history of colonic polyps